=== PATIENT | female | born 1990 | race Caucasian/White ===

== ENCOUNTER → 2016-07-06 | Outpatient (CLI) | payer OTHER ==
[~2016-07-06] VITALS: Ht 160 cm; Wt 90.7 kg
[~2016-07-06] MED LIST: ALBU17IN INH; ALBU83IN INH; AMLO5TAB2 PO; ASMA1AER3 INH; BENA25CA4 PO; BENT10CA PO; BUSP10TA PO; CYCL5TA PO; D 50CAP PO; DULO30CA PO; EXCETAB68 PO; FAMO40TA3 PO; FERR22EL PO; GABA300C3 PO; GEMF600T PO; IBUP600T26 PO; IBUP80TA PO; K-TA10TA2 PO; LIPI10TA PO; LIPI20TA PO; LISI-542 PO; LOPI600T PO; LOSA25TA8 PO; MACR100C3 PO; MEDR1VL IM; MELA1TAB15 PO; METH0.2T4 PO; NEUR300C PO; NS 1,000 ML IV SCH; OXYC5CAP28 PO; PROPOFOL 200 MG/20 ML VIAL As Ordered ONE; PROZ20CA11 PO; TRAZ100T4 PO; TYLE325T5 PO; VENL75TA3 PO; VICO5TAB PO; VITA100T PO; VITA500064 PO; ZANA4CAP PO; [UNRECOGNIZED DRUG - CODE] PO
--- NOTE | 2016-07-06 12:12 | ROOR ---
Patient Name: Rissa Acuña Procedure Date: 07/06/2016 11:58 AM Date of : 1990 Age: 26 Room: [facility] Gender: Female Note Status: Finalized Procedure: Colonoscopy Indications: High risk colon cancer surveillance: Personal history of colonic polyps, Last colonoscopy: June 2013 Providers: Domenico RUSSELL MD Referring MD: RON PAULINO MD Requesting Provider: Medicines: Monitored Anesthesia Care Complications: No immediate complications. Procedure: Pre-Anesthesia Assessment: - The heart rate, respiratory rate, oxygen saturations, blood pressure, adequacy of pulmonary ventilation, and response to care were monitored throughout the procedure. The Colonoscope was introduced through the anus and advanced to the cecum, identified by appendiceal orifice and ileocecal valve. The colonoscopy was performed without difficulty. The patient tolerated the procedure well. The quality of the bowel preparation was fair and good except the ascending colon was unsatisfactory. Findings: The perianal and digital rectal examinations were normal. (EXAM: Complete, PREP: Suboptimal) The entire examined colon appeared normal on direct and retroflexion views. Impression: - Preparation of the colon was inadequate. - (EXAM: Complete, PREP: Suboptimal) - The entire colon is normal on direct and retroflexion views. - No specimens collected. Recommendation: - Repeat colonoscopy in 2 years because the bowel preparation was suboptimal. Domenico Russell MD Domenico RUSSELL MD 07/06/2016 12:12:08 PM This report has been signed electronically. Number of Addenda: 0 Note Initiated On: 07/06/2016 11:58 AM Estimated Blood Loss: Estimated blood loss: none.
[2016-07-06 12:40] VITALS: BP 113/74
== END ==
LOC: M OPP 09:42
PROVIDERS: ATTEND Internal Medicine Gastroenterology
DX: Z12.11 Encounter for screening for malignant neoplasm of colon (principal); Z86.010 Personal history of colon polyps; I10 Essential (primary) hypertension; J45.909 Unspecified asthma, uncomplicated; Z72.0 Tobacco use; Z79.899 Other long term (current) drug therapy; Z88.5 Allergy status to narcotic agent
CPT/HCPCS: 99156; 99157; G0105

== ENCOUNTER 2017-01-06 12:00 | Inpatient (IN) | payer OTHER ==
[~2017-01-06] VITALS: Ht 154.9 cm; Wt 96.8 kg
[2017-01-06] MEDS: NICOTINE 21MG/24HR 1 EA TRANSDERMAL TD SCH (09:00)
[~2017-01-06 12:00] MED LIST changes: +AMLO-183 PO; +GABA-282 PO; -GABA300C3 PO; +IBUP-1022 PO; -IBUP600T26 PO; -MACR100C3 PO; +MACR100C43 PO; -NS 1,000 ML IV SCH; -PROPOFOL 200 MG/20 ML VIAL As Ordered ONE; +TRAZ-136 PO; -TRAZ100T4 PO; -[UNRECOGNIZED DRUG - CODE] PO
[2017-01-06 13:37] LABS: MEAN CORPUSCULAR HEMOGLOBIN 33.8 pg (27.0-33.0); MEAN CORPUSCULAR VOLUME 93.7 fl (80.0-96.0); RED CELL DISTRIBUTION WIDTH 12.4 % (11.5-14.5); WHITE BLOOD COUNT 11.7 K/mm3 (4.0-10.0)
[2017-01-06 13:48] LABS: CONTROL LINE HCG INT CTR LINE PRESENT
[2017-01-06 13:49] LABS: METHADONE URINE NEGATIVE (NEGATIVE)
[2017-01-06 14:05] LABS: ALBUMIN 4.8 GM/DL (3.2-5.2); ALBUMIN/GLOBULIN RATIO 1.55 (1.00-1.93); ALKALINE PHOSPHATASE 60 U/L (45-117); ALT/SGPT 25 U/L (12-78); ANION GAP 11 MEQ/L (8-16); AST/SGOT 7 U/L (15-37); BILIRUBIN,DIRECT < 0.1 MG/DL (0.0-0.2); BILIRUBIN,TOTAL 0.2 MG/DL (0.2-1.0); BLOOD UREA NITROGEN 11 MG/DL (7-18); CALCIUM LEVEL 8.8 MG/DL (8.5-10.1); CARBON DIOXIDE LEVEL 21 MEQ/L (21-32); CHLORIDE LEVEL 110 MEQ/L (98-107); CREATININE FOR GFR 0.74 MG/DL (0.55-1.02); GLOMERULAR FILTRATION RATE > 60.0 (>60); GLUCOSE, FASTING 137 MG/DL (70-105); POTASSIUM SERUM 4.1 MEQ/L (3.5-5.1); SODIUM LEVEL 142 MEQ/L (136-145); TOTAL PROTEIN 7.9 GM/DL (6.4-8.2)
[2017-01-06] MEDS ORDERED: MEDR4PAK PO (15:58)
[2017-01-06] MEDS ORDERED: DULO1CAP3 PO (15:58)
[2017-01-06] MEDS ORDERED: GABA600T PO (15:58)
[2017-01-06] MEDS ORDERED: BUSP15TA47 PO (15:58)
[2017-01-06 18:00] VITALS: BP 121/69
[2017-01-06 18:35] VITALS: BP 121/69
[2017-01-06] MEDS ORDERED: MAALOX 30 ML SUSP *UDC PO PRN (19:15)
[2017-01-06] MEDS ORDERED: traZODone 50 MG TAB PO PRN (19:15)
[2017-01-06] MEDS ORDERED: MOM 30ML SUSPENSION UDC PO PRN (19:15)
[2017-01-06] MEDS ORDERED: ALBUTEROL 90 MCG/ACT 8GM HFA INHALER INH PRN (19:30)
[2017-01-06] MEDS ORDERED: ALBUTEROL SULFATE 2.5 MG/0.5 ML INH NEB SOLN INH PRN (19:30)
[2017-01-06] MEDS: GABAPENTIN 300 MG CAP PO SCH (20:52)
[2017-01-06] MEDS: DULoxetine 30 MG CAP (CYMBALTA) PO SCH (20:52)
[2017-01-06] MEDS: LOSARTAN 25 MG TAB PO SCH (20:53)
[2017-01-06] MEDS: busPIRone 5 MG TAB PO SCH (20:54)
[2017-01-06] MEDS: methylPREDNISolone 4 MG TAB PO SCH (20:54)
[2017-01-06] MEDS: DICYCLOMINE 10 MG CAP PO SCH (20:54)
[2017-01-06] MEDS: FAMOTIDINE 20 MG TAB PO SCH (20:54)
[2017-01-06] MEDS: GEMFIBROZIL 600 MG TAB PO SCH (20:54)
[2017-01-06] MEDS: diphenhydrAMINE 25 MG CAP PO SCH (20:55)
[2017-01-06] MEDS: ACETAMINOPHEN TAB 650MG DOSE (2X325MG) PO PRN (22:32)
[2017-01-07] MEDS: methylPREDNISolone 4 MG TAB PO SCH (06:53)
[2017-01-07 07:03] VITALS: BP 116/58
[2017-01-07] MEDS: NICOTINE 21MG/24HR 1 EA TRANSDERMAL TD SCH (08:55)
[2017-01-07] MEDS: VITAMIN D 1,000 INTERNATIONAL UNITS TABLET PO SCH (08:56)
[2017-01-07] MEDS: GABAPENTIN 300 MG CAP PO SCH ×3 (08:56→21:05)
[2017-01-07] MEDS: DULoxetine 30 MG CAP (CYMBALTA) PO SCH ×2 (08:56→21:05)
[2017-01-07] MEDS: FAMOTIDINE 20 MG TAB PO SCH ×2 (08:56→21:05)
[2017-01-07] MEDS: POTASSIUM CHLORIDE 10 MEQ SR TABLET PO SCH (08:56)
[2017-01-07] MEDS: busPIRone 5 MG TAB PO SCH ×2 (08:56→21:05)
[2017-01-07] MEDS: ATORVASTATIN 20 MG TAB PO SCH (08:56)
[2017-01-07] MEDS: amLODIPine 5 MG TAB PO SCH (08:56)
[2017-01-07] MEDS: GEMFIBROZIL 600 MG TAB PO SCH ×2 (08:57→21:05)
[2017-01-07] MEDS: DICYCLOMINE 10 MG CAP PO SCH ×2 (08:57→21:06)
[2017-01-07] MEDS: ACETAMINOPHEN TAB 650MG DOSE (2X325MG) PO PRN ×3 (09:45→22:35)
[2017-01-07] MEDS: NICOTINE POLACRILEX 2 MG GUM PO PRN ×2 (09:46→17:48)
--- NOTE | 2017-01-07 12:45 | HPEPDOC ---
Medical History and Physical Date of Admission Jan 06, 2017 at 15:08 History and Physical PCP: Dr. Ivy [facility]. [facility], Dr. Trujillo. ATTENDING: Dr. Domenico Soliz HPI: 26 [facility] F [facility] unspecified depressive disorder, being medically examined today. No acute medical complaints today. Denies any fevers, chills, weakness, fatigue, SANTO, CP, SOB, cough, palpitations, abdominal pain, N/V /D or changes in bowel or bladder habits. PMHx: Asthma Hypertension Hyperlipidemia Vitamin D deficiency Insomnia IBS Chronic pain/chronic back pain Unsteady gait. Patient states sometimes uses cane. GERD Vitamin B12 deficiency Chronic headache Hypokalemia Anxiety Depression Depo-Provera as per NETWORK SECURITY ENGINEER [place] Sleep study pending as per PCP PSHX: Lumbar laminectomy/fusion (patient states 4 prior back surgeries) Dorsal column stimulator Pain management injections Cholecystectomy Hernia repair 2 Tonsillectomy Right shoulder SOCHX: Resides in: [facility] Marital Status: Tobacco use: Smoker ETOH: Eyes Illicit Drugs: Denies IV Drug Use: Denies Tattoos done unprofessionally: Denies FAMHX: Children: 2 children Alive, well Unexpected deaths due to medical reasons: None. ROS: As noted in HPI, otherwise 11pt ROS of systems reviewed and remarkable only for LMP unknown. Patient uses Depo-Provera. PE: GEN: 26 yo F, appears stated age. Well-nourished, well developed. No acute distress. Alert and oriented x 3. Pleasant, interactive. HEENT: Normocephalic, atraumatic. Pupils are equal, round, and reactive to light. Extraocular movements are intact. No nystagmus appreciated. Sclera are nonicteric. Conjunctiva without injection. Nose midline. Nasal turbinates without bogginess. EACs both patent BL. TMs both visualized and vargas with good cone of light, no bulging or erythema. No facial asymmetry. Moist mucous membranes. Dentition fair. Pharynx pink and moist, no cobblestoning. Neck supple , trachea midline. No lymphadenopathy or thyromegaly appreciated. CHEST: Regular rate and rhythm, +S1, +S2 LUNGS: Clear to auscultation bilaterally. No wheezes, rales, or rhonchi. Breathing appears symmetric and easy. Patient is speaking in full sentences. No accessory muscle use. ABD: Round, soft, non-tender, non-distended. +Bowel sounds throughout. No rebound or guarding. No costovertebral angle tenderness. EXT: Pulses 2+ bilaterally dorsalis pedis and radial. No lower extremity edema appreciated. SKIN: [place], dry, warm. Capillary refill <2sec. No rashes. NEURO: Alert and oriented x 3. Cranial nerves III-XII are intact. No focal deficits appreciated. Diffuse tenderness with palpation over the lower thoracic spine and lumbar area. EKG: Pending. A&P: 26 yo F [facility] for unspecified depressive disorder 1. Psych. Plan per Psychiatry. Obtain baseline EKG to assure the safety of psychiatric medications as they can prolong the QT interval. 2. Nicotine dependence. Patch available. 3. Chronic pain/chronic back pain. Continue gabapentin 600 mg 3 times a day. Patient requests pain management opinion, consult [facility] pain management for any further recommendations. 4. Follow up with PCP on discharge. 5. Hypertension. Continue losartan 25 mg daily, amlodipine 5 mg daily. Blood pressure noted to be 116/58. 6. Dyslipidemia. Continue gemfibrozil 600 mg by mouth twice a day. Lipitor 20 mg daily. 7. Vitamin D deficiency. Continue vitamin D supplement daily. 8. GERD. Continue Pepcid daily. 9. Hypokalemia. Continue KCl 10 mEq by mouth daily. Potassium is noted within normal limits. 10. Continue Depo-Provera as per NETWORK SECURITY ENGINEER. 11. Asthma. Continue albuterol HFA 2 puffs every 4 hours as needed. 12. Unsteady gait. Patient states she sometimes uses a cane for ambulation. Request physical therapy evaluation. 13. Leukocytosis. Patient is asymptomatic. Afebrile. Recheck CBC in a.m. 14. Merlyn PAS present throughout exam. Vital Signs Vital Signs Date Time Temp Pulse Resp B/P (MAP) Pulse Ox O2 Delivery O2 Flow Rate FiO2 01/07/17 08:56 83 116/58 01/07/17 07:03 98.8 18 01/06/17 18:35 96 Room Air Laboratory Data Labs 24H Laboratory Tests 2 01/06/17 13:15: Anion Gap 11, Glomerular Filtration Rate > 60.0, Calcium Level 8.8, Aspartate Amino Transf (AST/SGOT) 7L, Alanine Aminotransferase (ALT/SGPT) 25, Alkaline Phosphatase 60, Total Bilirubin 0.2, Direct Bilirubin < 0.1, Total Protein 7.9, Albumin 4.8, Albumin/Globulin Ratio 1.55, Thyroid Stimulating Hormone (TSH) 1.440, Human Chorionic Gonadotropin, Qual NEGATIVE, Salicylates Level 3.9L, Urine Amphetamines Screen NEGATIVE, Urine Benzodiazepines Screen NEGATIVE, Urine Opiates Screen NEGATIVE, Urine Methadone Screen NEGATIVE, Acetaminophen Level < 2.0L, Urine Barbiturates Screen NEGATIVE, Urine Phencyclidine Screen NEGATIVE, Urine Cocaine Metabolite Screen NEGATIVE, Urine Cannabinoids Screen NEGATIVE, Ethyl Alcohol Level < 0.003 CBC/BMP Laboratory Tests 01/06/17 13:15 Red Blood Count 4.39, Mean Corpuscular Volume 93.7, Mean Corpuscular Hemoglobin 33.8 H, Mean Corpuscular Hemoglobin Concent 36.0, Red Cell Distribution Width 12.4 Home Medications Scheduled (Excedrin Back & Body 250-250 mg) 1 Tab Tab, 1 TAB PO TID Amlodipine Besylate (Amlodipine Besylate) 5 Mg Tab, 5 MG PO DAILY Atorvastatin Calcium (Lipitor) 20 Mg Tab, 20 MG PO DAILY Buspirone HCl (Buspirone HCl) 15 Mg Tab, 30 MG PO BID Cholecalciferol (Vitamin D3) 5,000 Unit Cap, 5,000 UNIT PO DAILY Cyanocobalamin (Vitamin B-12) 5,000 Mcg Tab, 5,000 MCG PO DAILY Dicyclomine Hcl (Bentyl) 10 Mg Cap, 10 MG PO BID Diphenhydramine HCl (Benadryl Allergy) 25 Mg Cap, 75 MG PO QHS Duloxetine Hcl (Duloxetine HCl) 60 Mg Cap, 60 MG PO BID Famotidine (Famotidine) 40 Mg Tab, 40 MG PO BID Gabapentin (Gabapentin) 600 Mg Tab, 600 MG PO TID Gemfibrozil (Gemfibrozil) 600 Mg Tab, 600 MG PO BID Losartan Potassium (Losartan Potassium) 25 Mg Tab, 25 MG PO QHS Medroxyprogesterone Acetate (Depo-Provera) 1,000 Mg/2.5 Ml Soln, 1,000 MG IM Q3M IS DUE TO RECEIVE IN Melatonin (Melatonin) 10 Mg Tab, 10 MG PO QHS Methylprednisolone (Medrol Dosepak) 4 Mg Derik, 4 MG PO ASDIRECTED PATIENT STATES SHE HAS ONE MORE DOSE FOR 8/31/17 AND DOSE FOR 01/07/17 THEN IS DONE. Mometasone Furoate (Asmanex Hfa) 200 Mcg/Act Aer, 2 PUFFS INH BID Potassium Chloride (K-Tab) 10 Meq Tab, 10 MEQ PO DAILY Trazodone HCl (Trazodone HCl) 100 Mg Tab, 100 MG PO QHS Scheduled PRN Albuterol Sulfate (Albuterol Sulfate) 2.5 Mg/3 Ml Nebu, 2.5 MG INH Q4HP PRN for DYSPNEA Albuterol Sulfate (Ventolin Hfa) 200 Puff/8 Gm Aers, 1 PUFF INH QID PRN for SHORTNESS OF BREATH Allergies Coded Allergies: Tramadol (Verified Allergy, Unknown, 12/13/13) SLEEP PARALYSIS, URINARY RETENTION Lisinopril (Verified Adverse Reaction, Intermediate, excessive cough, 01/06) Valerie Cordero Jan 07, 2017 12:45
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
[2017-01-07 18:00] VITALS: BP 149/90
[2017-01-07] MEDS: traZODone 100 MG TAB PO PRN (21:05)
[2017-01-07] MEDS: diphenhydrAMINE 25 MG CAP PO SCH (21:06)
[2017-01-07] MEDS: LOSARTAN 25 MG TAB PO SCH (21:06)
[2017-01-08 07:11] VITALS: BP 127/75
[2017-01-08 08:09] LABS: MEAN CORPUSCULAR HEMOGLOBIN 33.3 pg (27.0-33.0); MEAN CORPUSCULAR HGB CONC 35.8 g/dl (32.0-36.5); MEAN CORPUSCULAR VOLUME 92.9 fl (80.0-96.0); RED CELL DISTRIBUTION WIDTH 12.2 % (11.5-14.5); WHITE BLOOD COUNT 12.3 K/mm3 (4.0-10.0)
[2017-01-08] MEDS: GABAPENTIN 300 MG CAP PO SCH ×3 (08:12→21:13)
[2017-01-08] MEDS: ATORVASTATIN 20 MG TAB PO SCH (08:13)
[2017-01-08] MEDS: POTASSIUM CHLORIDE 10 MEQ SR TABLET PO SCH (08:13)
[2017-01-08] MEDS: busPIRone 5 MG TAB PO SCH ×2 (08:13→21:13)
[2017-01-08] MEDS: amLODIPine 5 MG TAB PO SCH (08:13)
[2017-01-08] MEDS: GEMFIBROZIL 600 MG TAB PO SCH ×2 (08:13→21:13)
[2017-01-08] MEDS: DICYCLOMINE 10 MG CAP PO SCH ×2 (08:13→21:13)
[2017-01-08] MEDS: DULoxetine 30 MG CAP (CYMBALTA) PO SCH ×2 (08:13→21:13)
[2017-01-08] MEDS: VITAMIN D 1,000 INTERNATIONAL UNITS TABLET PO SCH (08:13)
[2017-01-08] MEDS: FAMOTIDINE 20 MG TAB PO SCH ×2 (08:27→21:13)
--- NOTE | 2017-01-08 09:48 | ECGEPIP ---
Stationary ECG Study [place] Test Date: 2017-01-07 Pat Name: YARITZA FARAH Department: Room: [place] [address] Gender: F Inspector Filters: : 1990 Requested By: Valerie Cordero Order Number: [id number] Reading MD: Abdoulaye Peterson Measurements Intervals [place] Rate: 81 P: 56 TN: 168 QRS: 8 QRSD: 82 T: 46 QT: 364 QTc: 425 Interpretive Statements SINUS RHYTHM Normal Electronically Signed On 01-08-2017 9:48:19 EDT by Abdoulaye Peterson
[2017-01-08] MEDS: ACETAMINOPHEN TAB 650MG DOSE (2X325MG) PO PRN ×2 (12:20→21:14)
--- NOTE | 2017-01-08 17:29 | MHIPNPDOC ---
[facility] Progress Note Progress Note DATE OF SERVICE: 01/08/17 HISTORY: Patient was seen and evaluated. She reported that she has been feeling little better with mood and denies current suicidal or homicidal ideations, but she reported that she has been feeling nervous at times because of the financial problems they're having with the examples given his. They just being present for last month and don't have enough money to pay for this month. She remains optimistic about the future, but at the same time listed all the stressors that she has been having Financial problems. Notable to play with periods work or clean the house. Discussed about CBT skills pertaining to the problems and come up with solutions and will continue to be emphasized that compliant with the medications and denies any side effects. Reported sleeping little better yesterday. Denies appetite problems VITAL SIGNS: See below. CURRENT MEDICATIONS: See below. MENTAL STATUS EXAMINATION: 26yo female sitting in the chair, looks older than the stated age, fair hygiene and grooming, normal psychomotor activities, no abnormal movements, cooperative with fair eye contact, speech is normal in rate, rhythm, amount and prosody, mood is 'sad & nervous', affect constricted and mood congruent, thought process is logical and goal directed, denies suicidal and homicidal ideations, denies hallucinations, no delusions elicited, aaox3, fair immediate, short term and fci memory, limited insight, fair judgement and impulse control DIAGNOSES: 1. Major depression, recurrent psychosis. 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 ASSESSMENT: Biologically, having psychiatry illnesses in the family shows that patient has genetic loading which can be predisposing and perpetuating factor, chronic pain and medical illnesses, also can be predisposing and perpetuating factors Psychologically, having poor coping skills and defense mechanisms Socially, patient is and domiciled working full-time and having children can be protective for her while limited social support can be perpetuating factor MANAGEMENT PLAN: . TIME SPENT: minutes. Vital Signs Vital Signs Date Time Temp Pulse Resp B/P (MAP) Pulse Ox O2 Delivery O2 Flow Rate FiO2 01/08/17 08:13 85 127/75 01/08/17 07:11 98.9 16 Room Air 01/06/17 18:35 96 Laboratory Data CBC/BMP Laboratory Tests 01/08/17 07:30 Red Blood Count 4.38, Mean Corpuscular Volume 92.9, Mean Corpuscular Hemoglobin 33.3 H, Mean Corpuscular Hemoglobin Concent 35.8, Red Cell Distribution Width 12.2 Current Medications Current Medications Acetaminophen (Tylenol Tab) 650 mg Q6HP PRN PO HEADACHE or DISCOMFORT Last administered on 01/08/17 12:20; Start 01/06/17 at 19:15; Stop 02/05/17 at 19:14 Al Hydrox/Mg Hydrox/Simethicone (Mylanta) 30 ml Q4HP PRN PO HEARTBURN/ INDIGESTION; Start 01/06/17 at 19:15; Stop 02/05/17 at 19:14 Albuterol Sulfate (Proventil Neb) 2.5 mg Q4HP PRN INH DYSPNEA; Start 01/06/17 at 19:30; Stop 02/05/17 at 19:29 Albuterol Sulfate (Proventil, Ventolin Hfa) 1 puff QID PRN INH SHORTNESS OF BREATH; Start 01/06/17 at 19:30; Stop 02/05/17 at 19:29 Amlodipine Besylate (Norvasc) 5 mg DAILY PO Last administered on 01/08/17 08:13 ; Start 01/07/17 at 09:00; Stop 02/06/17 at 08:59 Aripiprazole (AbiLIFY) 5 mg QHS PO Last administered on 01/07/17 21:05; Start 01/07/17 at 21:00; Stop 02/06/17 at 20:59 Atorvastatin Calcium (Lipitor) 20 mg DAILY PO Last administered on 01/08/17 08: 13; Start 01/07/17 at 09:00; Stop 02/06/17 at 08:59 Buspirone HCl (Buspar) 30 mg BID PO Last administered on 01/08/17 08:13; Start 01/06/17 at 21:00; Stop 02/05/17 at 20:59 Dicyclomine HCl (Bentyl) 10 mg BID PO Last administered on 01/08/17 08:13; Start 01/06/17 at 21:00; Stop 02/05/17 at 20:59 Diphenhydramine HCl (Benadryl) 75 mg QHS PO Last administered on 01/07/17 21:06 ; Start 01/06/17 at 21:00; Stop 02/05/17 at 20:59 Duloxetine HCl (Cymbalta) 60 mg BID PO Last administered on 01/08/17 08:13; Start 01/06/17 at 21:00; Stop 02/05/17 at 20:59 Famotidine (Pepcid) 40 mg BID PO Last administered on 01/08/17 08:27; Start at 21:00; Stop 02/05/17 at 20:59 Gabapentin (Neurontin) 600 mg TID PO Last administered on 01/08/17 15:42; Start 01/06/17 at 21:00; Stop 02/05/17 at 20:59 Gemfibrozil (Lopid) 600 mg BID PO Last administered on 01/08/17 08:13; Start at 21:00; Stop 02/05/17 at 20:59 Home Med (Med Rec Complete!) ASDIRECTED XX ; Start 01/06/17 at 16:00; Stop at 16:01; Status DC Losartan Potassium (Cozaar) 25 mg QHS PO Last administered on 01/07/17 21:06; Start 01/06/17 at 21:00; Stop 02/05/17 at 20:59 Magnesium Hydroxide (Milk Of Magnesia) 30 ml DAILYPRN PRN PO CONSTIPATION; Start 01/06/17 at 19:15; Stop 02/05/17 at 19:14 Methylprednisolone (Medrol) 4 mg BID@0730,2100 PO Last administered on 06:53; Start 01/06/17 at 21:00; Stop 01/07/17 at 09:00; Status DC Nicotine (Nicoderm Cq 21mg) 1 patch DAILY TD ; Start 01/06/17 at 09:00; Stop 01/07/17 at 09:00; Status DC Nicotine (Nicorette) 2 mg Q4HP PRN PO NICOTINE WITHDRAWAL Last administered on 01/07/17 17:48; Start 01/07/17 at 09:00; Stop 02/06/17 at 08:59 Potassium Chloride (Micro-K Extencaps) 10 meq DAILY PO Last administered on 01/08 08:13; Start 01/07/17 at 09:00; Stop 02/06/17 at 08:59 Trazodone HCl (Desyrel) 50 mg QHSP PRN PO INSOMNIA Last administered on 20:54; Start 01/06/17 at 19:15; Stop 01/07/17 at 15:55; Status DC Trazodone HCl (Desyrel) 100 mg QHSP PRN PO INSOMNIA Last administered on 21:05; Start 01/07/17 at 16:00; Stop 02/06/17 at 15:59 Vitamin D (Vitamin D) 5,000 units DAILY PO Last administered on 01/08/17 08:13 ; Start 01/07/17 at 09:00; Stop 02/06/17 at 08:59 Allergies Coded Allergies: Tramadol (Verified Allergy, Unknown, 12/13/13) SLEEP PARALYSIS, URINARY RETENTION Lisinopril (Verified Adverse Reaction, Intermediate, excessive cough, 01/06) TOMASA GARLAND MD Jan 08, 2017 17:29
[2017-01-08 18:00] VITALS: BP 138/82
[2017-01-08] MEDS: traZODone 100 MG TAB PO PRN (21:12)
[2017-01-08] MEDS: ARIPiprazole 10 MG TAB PO SCH (21:13)
[2017-01-08] MEDS: diphenhydrAMINE 25 MG CAP PO SCH (21:13)
[2017-01-08] MEDS: LOSARTAN 25 MG TAB PO SCH (21:13)
[2017-01-09 06:36] VITALS: BP 120/60
[2017-01-09] MEDS: VITAMIN D 1,000 INTERNATIONAL UNITS TABLET PO SCH (08:15)
[2017-01-09] MEDS: GEMFIBROZIL 600 MG TAB PO SCH ×2 (08:15→21:01)
[2017-01-09] MEDS: DULoxetine 30 MG CAP (CYMBALTA) PO SCH ×2 (08:15→21:02)
[2017-01-09] MEDS: FAMOTIDINE 20 MG TAB PO SCH ×2 (08:15→21:02)
[2017-01-09] MEDS: amLODIPine 5 MG TAB PO SCH (08:15)
[2017-01-09] MEDS: busPIRone 5 MG TAB PO SCH ×2 (08:15→21:02)
[2017-01-09] MEDS: DICYCLOMINE 10 MG CAP PO SCH ×2 (08:15→20:59)
[2017-01-09] MEDS: GABAPENTIN 300 MG CAP PO SCH ×3 (08:15→21:02)
[2017-01-09] MEDS: ATORVASTATIN 20 MG TAB PO SCH (08:15)
[2017-01-09] MEDS: POTASSIUM CHLORIDE 10 MEQ SR TABLET PO SCH (08:15)
[2017-01-09] MEDS: ACETAMINOPHEN TAB 650MG DOSE (2X325MG) PO PRN ×2 (11:32→20:59)
--- NOTE | 2017-01-09 16:45 | MHIPNPDOC ---
[facility] Progress Note Progress Note DATE OF SERVICE: 01/09/17 HISTORY: Patient was seen and evaluated. Her was visiting and was on bedside. She reported that she has been feeling better with mood and denies current suicidal or homicidal ideations, both patient and her are requesting for discharge. Because patient daughter is going to school early next week and would like to see her going to school for the first time. Discussed about safety plan with the and he is willing to work with patient about safety denied any firearms in the house and is willing to take over control of the medications for the patient. Patient reported compliant with medications and also slept better with the increased dose of Abilify. Denies appetite problems. Patient continued to go to groups and milieu treatment in the unit. Discharge planning in progress VITAL SIGNS: See below. CURRENT MEDICATIONS: See below. 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 Major depression, recurrent psychosis. 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 ASSESSMENT: Biologically, having psychiatry illnesses in the family shows that patient has genetic loading which can be predisposing and perpetuating factor, chronic pain and medical illnesses, also can be predisposing and perpetuating factors Psychologically, having poor coping skills and defense mechanisms Socially, patient is and domiciled working full-time and having children can be protective for her while limited social support can be perpetuating factor MANAGEMENT PLAN: Continue current treatment. TIME SPENT:. 15 minutes. Vital Signs Vital Signs Date Time Temp Pulse Resp B/P (MAP) Pulse Ox O2 Delivery O2 Flow Rate FiO2 01/09/17 08:15 90 120/60 01/09/17 06:36 98.2 16 Room Air 01/06/17 18:35 96 Current Medications Current Medications Acetaminophen (Tylenol Tab) 650 mg Q6HP PRN PO HEADACHE or DISCOMFORT Last administered on 01/09/17t 11:32; Start 01/06/17 at 19:15; Stop 02/05/17 at 19:14 Al Hydrox/Mg Hydrox/Simethicone (Mylanta) 30 ml Q4HP PRN PO HEARTBURN/ INDIGESTION; Start 01/06/17 at 19:15; Stop 02/05/17 at 19:14 Albuterol Sulfate (Proventil Neb) 2.5 mg Q4HP PRN INH DYSPNEA; Start 01/06/17 at 19:30; Stop 02/05/17 at 19:29 Albuterol Sulfate (Proventil, Ventolin Hfa) 1 puff QID PRN INH SHORTNESS OF BREATH; Start 01/06/17 at 19:30; Stop 02/05/17 at 19:29 Amlodipine Besylate (Norvasc) 5 mg DAILY PO Last administered on 01/09/17 08:15 ; Start 01/07/17 at 09:00; Stop 02/06/17 at 08:59 Aripiprazole (AbiLIFY) 5 mg QHS PO Last administered on 01/07/17 21:05; Start 01/07/17 at 21:00; Stop 01/08/17 at 17:24; Status DC Aripiprazole (AbiLIFY) 10 mg QHS PO Last administered on 01/08/17 21:13; Start 01/08/17 at 21:00; Stop 02/07/17 at 20:59 Atorvastatin Calcium (Lipitor) 20 mg DAILY PO Last administered on 01/09/17 08: 15; Start 01/07/17 at 09:00; Stop 02/06/17 at 08:59 Buspirone HCl (Buspar) 30 mg BID PO Last administered on 01/09/17 08:15; Start 01/06/17 at 21:00; Stop 02/05/17 at 20:59 Dicyclomine HCl (Bentyl) 10 mg BID PO Last administered on 01/09/17 08:15; Start 01/06/17 at 21:00; Stop 02/05/17 at 20:59 Diphenhydramine HCl (Benadryl) 75 mg QHS PO Last administered on 01/08/17 21:13 ; Start 01/06/17 at 21:00; Stop 02/05/17 at 20:59 Duloxetine HCl (Cymbalta) 60 mg BID PO Last administered on 01/09/17 08:15; Start 01/06/17 at 21:00; Stop 02/05/17 at 20:59 Famotidine (Pepcid) 40 mg BID PO Last administered on 01/09/17 08:15; Start at 21:00; Stop 02/05/17 at 20:59 Gabapentin (Neurontin) 600 mg TID PO Last administered on 01/09/17 15:10; Start 01/06/17 at 21:00; Stop 02/05/17 at 20:59 Gemfibrozil (Lopid) 600 mg BID PO Last administered on 01/09/17 08:15; Start at 21:00; Stop 02/05/17 at 20:59 Home Med (Med Rec Complete!) ASDIRECTED XX ; Start 01/06/17 at 16:00; Stop at 16:01; Status DC Losartan Potassium (Cozaar) 25 mg QHS PO Last administered on 01/08/17 21:13; Start 01/06/17 at 21:00; Stop 02/05/17 at 20:59 Magnesium Hydroxide (Milk Of Magnesia) 30 ml DAILYPRN PRN PO CONSTIPATION; Start 01/06/17 at 19:15; Stop 02/05/17 at 19:14 Methylprednisolone (Medrol) 4 mg BID@0730,2100 PO Last administered on 06:53; Start 01/06/17 at 21:00; Stop 01/07/17 at 09:00; Status DC Nicotine (Nicoderm Cq 21mg) 1 patch DAILY TD ; Start 01/06/17 at 09:00; Stop 01/07/17 at 09:00; Status DC Nicotine (Nicorette) 2 mg Q4HP PRN PO NICOTINE WITHDRAWAL Last administered on 01/07/17 17:48; Start 01/07/17 at 09:00; Stop 02/06/17 at 08:59 Potassium Chloride (Micro-K Extencaps) 10 meq DAILY PO Last administered on 01/09 08:15; Start 01/07/17 at 09:00; Stop 02/06/17 at 08:59 Trazodone HCl (Desyrel) 50 mg QHSP PRN PO INSOMNIA Last administered on 20:54; Start 01/06/17 at 19:15; Stop 01/07/17 at 15:55; Status DC Trazodone HCl (Desyrel) 100 mg QHSP PRN PO INSOMNIA Last administered on 21:12; Start 01/07/17 at 16:00; Stop 02/06/17 at 15:59 Vitamin D (Vitamin D) 5,000 units DAILY PO Last administered on 01/09/17 08:15 ; Start 01/07/17 at 09:00; Stop 02/06/17 at 08:59 Allergies Coded Allergies: Tramadol (Verified Allergy, Unknown, 12/13/13) SLEEP PARALYSIS, URINARY RETENTION Lisinopril (Verified Adverse Reaction, Intermediate, excessive cough, 01/06) TOMASA GARLAND MD Jan 09, 2017 16:45
[2017-01-09 18:00] VITALS: BP 132/86
[2017-01-09] MEDS: ARIPiprazole 10 MG TAB PO SCH (21:01)
[2017-01-09] MEDS: LOSARTAN 25 MG TAB PO SCH (21:01)
[2017-01-09] MEDS: diphenhydrAMINE 25 MG CAP PO SCH (21:02)
[2017-01-09] MEDS: traZODone 100 MG TAB PO PRN (21:02)
[2017-01-10 06:00] VITALS: BP 126/57
[2017-01-10] MEDS: DULoxetine 30 MG CAP (CYMBALTA) PO SCH (08:45)
[2017-01-10] MEDS: GABAPENTIN 300 MG CAP PO SCH (08:45)
[2017-01-10] MEDS: VITAMIN D 1,000 INTERNATIONAL UNITS TABLET PO SCH (08:45)
[2017-01-10] MEDS: ATORVASTATIN 20 MG TAB PO SCH (08:45)
[2017-01-10] MEDS: POTASSIUM CHLORIDE 10 MEQ SR TABLET PO SCH (08:45)
[2017-01-10] MEDS: DICYCLOMINE 10 MG CAP PO SCH (08:45)
[2017-01-10] MEDS: GEMFIBROZIL 600 MG TAB PO SCH (08:45)
[2017-01-10 08:46] VITALS: BP 126/57
[2017-01-10] MEDS: amLODIPine 5 MG TAB PO SCH (08:46)
[2017-01-10] MEDS: busPIRone 5 MG TAB PO SCH (08:48)
[2017-01-10] MEDS: ACETAMINOPHEN TAB 650MG DOSE (2X325MG) PO PRN (09:46)
[2017-01-10] MEDS: FAMOTIDINE 20 MG TAB PO SCH (09:46)
[2017-01-10] MEDS ORDERED: TRAZ10TA PO (09:51)
[2017-01-10] MEDS ORDERED: DULO30CA PO (09:51)
[2017-01-10] MEDS ORDERED: BUSP5TA PO (09:51)
[2017-01-10] MEDS ORDERED: ARIP10TAB PO (09:51)
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
[2017-01-11] MEDS ORDERED: ABIL10TA9 PO (11:12)
[2017-01-11] MEDS ORDERED: ARIP1TAB2 PO (11:25)
== END 2017-01-10 11:00 | disposition home or self-care (01) | DRG 751 ==
LOC: M ED 12:00 → M ED INP 15:08 → M PSY 16:18
PROVIDERS: ADMIT Psychiatry & Neurology Psychiatry; ATTEND Psychiatry & Neurology Psychiatry
DX: F33.9 Major depressive disorder, recurrent, unspecified (principal); F06.30 Mood disorder due to known physiological condition, unspecified; I10 Essential (primary) hypertension; E78.5 Hyperlipidemia, unspecified; F41.9 Anxiety disorder, unspecified; M54.9 Dorsalgia, unspecified; E55.9 Vitamin D deficiency, unspecified; G47.00 Insomnia, unspecified; K58.9 Irritable bowel syndrome, unspecified; R26.81 Unsteadiness on feet; E53.8 Deficiency of other specified B group vitamins; E87.6 Hypokalemia; F17.210 Nicotine dependence, cigarettes, uncomplicated; K21.9 Gastro-esophageal reflux disease without esophagitis; Z79.899 Other long term (current) drug therapy; Z62.810 Personal history of physical and sexual abuse in childhood; Z88.8 Allergy status to other drugs, medicaments and biological substances; Z88.5 Allergy status to narcotic agent

== ENCOUNTER 2018-03-09 20:31 | Observation (INO) | payer OTHER, SELFPAY ==
[2018-03-09 20:52] LABS: BASO % 0.3 % (0.0-1.0); EOS % 0.3 % (0.0-3.0); HEMATOCRIT 43.7 % (36.0-47.0); HEMOGLOBIN 15.4 g/dl (12.0-15.5); IMMATURE GRANULOCYTE % 0.7 % (0-3.0); LYMPH # 2.9 10^3/uL (1.5-6.5); LYMPH % 21.1 % (24.0-44.0); MEAN CORPUSCULAR HEMOGLOBIN 32.8 pg (27.0-33.0); MEAN CORPUSCULAR HGB CONC 35.2 g/dl (32.0-36.5); MEAN CORPUSCULAR VOLUME 93.2 fl (80.0-96.0); MONO # 0.6 10^3/uL (0.0-0.8); MONO % 4.3 % (0.0-5.0); NEUTROPHILS # 10.1 10^3/uL (1.8-7.7); NEUTROPHILS % 73.3 % (36.0-66.0); PLATELET COUNT, AUTOMATED 328 10^3/uL (150-450); RED BLOOD COUNT 4.69 10^6/uL (4.00-5.40); RED CELL DISTRIBUTION WIDTH 12.3 % (11.5-14.5); WHITE BLOOD COUNT 13.7 10^3/uL (4.0-10.0)
[2018-03-09] MEDS ORDERED: GEMFIBROZIL 600 MG TAB PO (21:00)
[2018-03-09] MEDS: ATORVASTATIN 20 MG TAB PO (21:00)
[2018-03-09] MEDS: NS 1,000 ML IV ×2 (21:09→23:04)
[2018-03-09 21:22] LABS: AMPHETAMINES LEVEL URINE NEGATIVE (NEGATIVE); BARBITURATES URINE NEGATIVE (NEGATIVE); BENZODIAZEPINES URINE NEGATIVE (NEGATIVE); CANNABINOIDS URINE NEGATIVE (NEGATIVE); COCAINE METABOLITE URINE NEGATIVE (NEGATIVE); CONTROL LINE HCG INT CTR LINE PRESENT; HCG, SERUM QUALITATIVE NEGATIVE (NEGATIVE); METHADONE URINE NEGATIVE (NEGATIVE); OPIATES URINE NEGATIVE (NEGATIVE); PHENCYCLIDINE URINE NEGATIVE (NEGATIVE)
[2018-03-09 21:34] LABS: ALBUMIN 4.1 GM/DL (3.2-5.2); ALBUMIN/GLOBULIN RATIO 1.17 (1.00-1.93); ALKALINE PHOSPHATASE 86 U/L (45-117); ALT/SGPT 44 U/L (12-78); ANION GAP 12 MEQ/L (8-16); AST/SGOT 18 U/L (7-37); BILIRUBIN,DIRECT < 0.1 MG/DL (0.0-0.2); BILIRUBIN,TOTAL 0.3 MG/DL (0.2-1.0); BLOOD UREA NITROGEN 13 MG/DL (7-18); CALCIUM LEVEL 8.7 MG/DL (8.5-10.1); CARBON DIOXIDE LEVEL 24 MEQ/L (21-32); CHLORIDE LEVEL 108 MEQ/L (98-107); CPK CREATINE PHOSPHOKINASE 107 U/L (26-192); CREATININE FOR GFR 1.16 MG/DL (0.55-1.30); GLOMERULAR FILTRATION RATE 59.2 (>60); GLUCOSE, FASTING 140 MG/DL (70-100); POTASSIUM SERUM 4.7 MEQ/L (3.5-5.1); SALICYLATE LEVEL 2.3 MG/DL (5.0-30.0); SODIUM LEVEL 144 MEQ/L (136-145); TOTAL PROTEIN 7.6 GM/DL (6.4-8.2)
[2018-03-09 21:37] LABS: ACETAMINOPHEN LEVEL < 2.0 UG/ML (10.0-30.0); ETHYL ALCOHOL (ETHANOL) < 0.003 % (0.000-0.010)
[2018-03-09] MEDS ORDERED: IPRATROPIUM 0.5MG/ALBUTEROL 2.5MG INH SOL UD 3ML (DUONEB)(J7620) NEB (22:30)
[2018-03-10] MEDS: LOSARTAN 25 MG TAB PO (00:19)
[2018-03-10] MEDS: NICOTINE 14 MG/24 HR TRANSDERMAL TD ×2 (00:19→09:54)
[2018-03-10] MEDS: HEPARIN SOD (PORCINE) 5000 UNITS/ML VIAL SC (06:31)
[2018-03-10 06:50] LABS: HEMATOCRIT 40.3 % (36.0-47.0); HEMOGLOBIN 13.7 g/dl (12.0-15.5); MEAN CORPUSCULAR HEMOGLOBIN 32.5 pg (27.0-33.0); MEAN CORPUSCULAR VOLUME 95.7 fl (80.0-96.0); PLATELET COUNT, AUTOMATED 265 10^3/uL (150-450); RED BLOOD COUNT 4.21 10^6/uL (4.00-5.40); RED CELL DISTRIBUTION WIDTH 12.3 % (11.5-14.5); WHITE BLOOD COUNT 10.5 10^3/uL (4.0-10.0)
[2018-03-10 07:28] LABS: ANION GAP 7 MEQ/L (8-16); BLOOD UREA NITROGEN 13 MG/DL (7-18); CALCIUM LEVEL 8.4 MG/DL (8.5-10.1); CARBON DIOXIDE LEVEL 23 MEQ/L (21-32); CHLORIDE LEVEL 111 MEQ/L (98-107); CREATININE FOR GFR 0.71 MG/DL (0.55-1.30); FREE THYROXINE INDEX 1.7 % (1.3-4.8); GLOMERULAR FILTRATION RATE > 60.0 (>60); GLUCOSE, FASTING 112 MG/DL (70-100); POTASSIUM SERUM 3.9 MEQ/L (3.5-5.1); SODIUM LEVEL 141 MEQ/L (136-145); T UPTAKE 30 % (30-39); THYROXINE (T4) 5.6 UG/DL (4.5-12.0)
[2018-03-10] MEDS ORDERED: MONTELUKAST 10 MG TAB PO (09:00)
[2018-03-10] MEDS ORDERED: NICOTINE 21MG/24HR 1 EA TRANSDERMAL TD (09:00)
[2018-03-10] MEDS: FLUTICASONE PROP 0.05% NASAL SPRAY 16 GM (FLONASE) (09:53)
[2018-03-10] MEDS: VITAMIN D 1,000 INTERNATIONAL UNITS TABLET PO (09:54)
[2018-03-10] MEDS: amLODIPine 5 MG TAB PO (09:55)
[2018-03-10] MEDS: NS 1,000 ML IV (09:55)
[2018-03-10] MEDS ORDERED: MOM 30ML SUSPENSION UDC PO (15:00)
[2018-03-10] MEDS ORDERED: traZODone 50 MG TAB PO (15:00)
[2018-03-10] MEDS ORDERED: MAALOX 30 ML SUSP *UDC PO (15:00)
[2018-03-10] MEDS ORDERED: ACETAMINOPHEN TAB 650MG DOSE (2X325MG) PO (15:00)
== END 2018-03-10 16:04 ==
LOC: M ED 20:31 → M ED INP 22:21
DX: T14.91XA Suicide attempt, initial encounter (principal); T50.902A Poisoning by unspecified drugs, medicaments and biological substances, intentional self-harm, initial encounter; D72.829 Elevated white blood cell count, unspecified; R94.6 Abnormal results of thyroid function studies; J45.909 Unspecified asthma, uncomplicated; I10 Essential (primary) hypertension; E78.5 Hyperlipidemia, unspecified; E55.9 Vitamin D deficiency, unspecified; G47.00 Insomnia, unspecified; F41.9 Anxiety disorder, unspecified; F32.9 Major depressive disorder, single episode, unspecified; Z79.899 Other long term (current) drug therapy; K58.8 Other irritable bowel syndrome; F17.210 Nicotine dependence, cigarettes, uncomplicated; Y92.9 Unspecified place or not applicable
CPT/HCPCS: 93005

== ENCOUNTER 2018-03-10 16:05 | Inpatient (IN) | payer OTHER ==
[2018-03-10] MEDS ORDERED: MAALOX 30 ML SUSP *UDC PO (16:30)
[2018-03-10] MEDS ORDERED: MOM 30ML SUSPENSION UDC PO (16:30)
[2018-03-10] MEDS: traZODone 50 MG TAB PO (21:27)
[2018-03-11] MEDS: NICOTINE 21MG/24HR 1 EA TRANSDERMAL TD (08:31)
[2018-03-11] MEDS: INFLUENZA QUADRIVALENT PF VACCINE 0.5ML SYRINGE (90686) IM (08:32)
[2018-03-11] MEDS: ACETAMINOPHEN TAB 650MG DOSE (2X325MG) PO ×3 (13:35→23:32)
[2018-03-11] MEDS: buPROPion **XL** TABLET 150MG (WELLBUTRIN XL) PO (15:42)
[2018-03-11] MEDS: DULoxetine 30 MG CAP (CYMBALTA) PO (20:39)
[2018-03-11] MEDS: traZODone 50 MG TAB PO (20:40)
[2018-03-11] MEDS: busPIRone 10 MG TAB PO (20:40)
[2018-03-11] MEDS: LOSARTAN 25 MG TAB PO (23:30)
[2018-03-11] MEDS: ATORVASTATIN 20 MG TAB PO (23:30)
[2018-03-11] MEDS: PREGABALIN 75 MG CAP(LYRICA) PO (23:30)
[2018-03-11] MEDS: FLUTICASONE PROP 0.05% NASAL SPRAY 16 GM (FLONASE) NARES (23:31)
[2018-03-12 07:46] LABS: FREE THYROXINE INDEX 2.6 % (1.3-4.8); T UPTAKE 28 % (30-39); THYROXINE (T4) 9.2 UG/DL (4.5-12.0)
[2018-03-12] MEDS: FLUTICASONE PROP 0.05% NASAL SPRAY 16 GM (FLONASE) NARES ×2 (08:47→20:55)
[2018-03-12] MEDS: NICOTINE 21MG/24HR 1 EA TRANSDERMAL TD (08:48)
[2018-03-12] MEDS: POTASSIUM CHLORIDE 10 MEQ SR TABLET PO (08:48)
[2018-03-12] MEDS: buPROPion **XL** TABLET 150MG (WELLBUTRIN XL) PO (08:48)
[2018-03-12] MEDS: CYANOCOBALAMIN 500 MCG TAB PO (08:49)
[2018-03-12] MEDS: DULoxetine 30 MG CAP (CYMBALTA) PO ×2 (08:49→20:55)
[2018-03-12] MEDS: busPIRone 10 MG TAB PO ×2 (08:50→20:56)
[2018-03-12] MEDS: MONTELUKAST 10 MG TAB PO (08:50)
[2018-03-12] MEDS: VITAMIN D 1,000 INTERNATIONAL UNITS TABLET PO (08:50)
[2018-03-12] MEDS: amLODIPine 5 MG TAB PO (08:50)
[2018-03-12] MEDS: ARIPiprazole 15 MG TAB (AbiLIFY) PO (08:52)
[2018-03-12] MEDS: PREGABALIN 75 MG CAP(LYRICA) PO ×3 (08:52→20:55)
[2018-03-12] MEDS: LORATADINE 10 MG TAB PO (08:52)
[2018-03-12] MEDS: ACETAMINOPHEN TAB 650MG DOSE (2X325MG) PO ×3 (08:53→21:34)
[2018-03-12] MEDS: LOSARTAN 25 MG TAB PO (20:55)
[2018-03-12] MEDS: ATORVASTATIN 20 MG TAB PO (20:55)
[2018-03-13] MEDS: POTASSIUM CHLORIDE 10 MEQ SR TABLET PO (08:36)
[2018-03-13] MEDS: NICOTINE 21MG/24HR 1 EA TRANSDERMAL TD (08:36)
[2018-03-13] MEDS: FLUTICASONE PROP 0.05% NASAL SPRAY 16 GM (FLONASE) NARES ×2 (08:37→20:21)
[2018-03-13] MEDS: DULoxetine 30 MG CAP (CYMBALTA) PO ×2 (08:37→20:23)
[2018-03-13] MEDS: PREGABALIN 75 MG CAP(LYRICA) PO ×3 (08:37→20:23)
[2018-03-13] MEDS: ARIPiprazole 15 MG TAB (AbiLIFY) PO (08:37)
[2018-03-13] MEDS: VITAMIN D 1,000 INTERNATIONAL UNITS TABLET PO (08:37)
[2018-03-13] MEDS: buPROPion **XL** TABLET 150MG (WELLBUTRIN XL) PO (08:38)
[2018-03-13] MEDS: LORATADINE 10 MG TAB PO (08:38)
[2018-03-13] MEDS: CYANOCOBALAMIN 500 MCG TAB PO (08:38)
[2018-03-13] MEDS: ACETAMINOPHEN TAB 650MG DOSE (2X325MG) PO ×3 (08:38→22:14)
[2018-03-13] MEDS: amLODIPine 5 MG TAB PO (08:38)
[2018-03-13] MEDS: busPIRone 10 MG TAB PO ×2 (08:38→20:23)
[2018-03-13] MEDS: MONTELUKAST 10 MG TAB PO (08:38)
[2018-03-13] MEDS: PILL CRUSHER/CUTTER 1 EACH XX (08:38)
[2018-03-13] MEDS: LOSARTAN 25 MG TAB PO (20:22)
[2018-03-13] MEDS: ATORVASTATIN 20 MG TAB PO (20:23)
[2018-03-13] MEDS: traZODone 50 MG TAB PO (20:23)
[2018-03-14] MEDS: ACETAMINOPHEN TAB 650MG DOSE (2X325MG) PO (06:32)
[2018-03-14] MEDS: CYANOCOBALAMIN 500 MCG TAB PO (08:18)
[2018-03-14] MEDS: VITAMIN D 1,000 INTERNATIONAL UNITS TABLET PO (08:18)
[2018-03-14] MEDS: LORATADINE 10 MG TAB PO (08:19)
[2018-03-14] MEDS: ARIPiprazole 15 MG TAB (AbiLIFY) PO (08:19)
[2018-03-14] MEDS: busPIRone 10 MG TAB PO (08:19)
[2018-03-14] MEDS: MONTELUKAST 10 MG TAB PO (08:19)
[2018-03-14] MEDS: buPROPion **XL** TABLET 150MG (WELLBUTRIN XL) PO (08:20)
[2018-03-14] MEDS: FLUTICASONE PROP 0.05% NASAL SPRAY 16 GM (FLONASE) NARES (08:20)
[2018-03-14] MEDS: POTASSIUM CHLORIDE 10 MEQ SR TABLET PO (08:21)
[2018-03-14] MEDS: DULoxetine 30 MG CAP (CYMBALTA) PO (08:21)
[2018-03-14] MEDS: PREGABALIN 75 MG CAP(LYRICA) PO (08:21)
[2018-03-14] MEDS: amLODIPine 5 MG TAB PO (08:21)
[2018-03-14] MEDS: NICOTINE 21MG/24HR 1 EA TRANSDERMAL TD (08:22)
== END 2018-03-14 14:20 | disposition home or self-care (01) | DRG 881 ==
LOC: M PSY 16:05
DX: F32.9 Major depressive disorder, single episode, unspecified (principal); F41.1 Generalized anxiety disorder; J45.909 Unspecified asthma, uncomplicated; G47.00 Insomnia, unspecified; G89.29 Other chronic pain; K58.9 Irritable bowel syndrome, unspecified; M79.7 Fibromyalgia; R94.6 Abnormal results of thyroid function studies; E78.00 Pure hypercholesterolemia, unspecified; R26.81 Unsteadiness on feet; R51 Headache; K21.9 Gastro-esophageal reflux disease without esophagitis; E55.9 Vitamin D deficiency, unspecified; E78.5 Hyperlipidemia, unspecified; I10 Essential (primary) hypertension; F55.8 Abuse of other non-psychoactive substances; Z91.5 Personal history of self-harm; Z88.8 Allergy status to other drugs, medicaments and biological substances; Z88.5 Allergy status to narcotic agent; Z91.018 Allergy to other foods; Z98.1 Arthrodesis status; Z90.49 Acquired absence of other specified parts of digestive tract; Z79.51 Long term (current) use of inhaled steroids; Z79.899 Other long term (current) drug therapy

== ENCOUNTER → 2018-03-15 | Outpatient (CLI) | payer OTHER | LOC: M OUTALCOH 07:53 | DX: Z13.89 Encounter for screening for other disorder (principal); F19.20 Other psychoactive substance dependence, uncomplicated ==

== ENCOUNTER 2018-03-23 11:00 | Outpatient (RCR) | payer OTHER | END 2018-04-07 | LOC: M OUTALCOH 11:00 | DX: F19.20 Other psychoactive substance dependence, uncomplicated (principal); F17.200 Nicotine dependence, unspecified, uncomplicated ==

== ENCOUNTER → 2018-03-23 | Outpatient (CLI) | payer OTHER ==
[2018-03-26 14:07] LABS: OXYCODONE SCREEN Negative ng/mL (Cutoff:5)
== END ==
LOC: M LAB 12:38
DX: F19.20 Other psychoactive substance dependence, uncomplicated (principal)
CPT/HCPCS: 36415

== ENCOUNTER 2018-05-04 10:00 | Outpatient (RCR) | payer OTHER ==
[~2018-05-04 10:00] MED LIST changes: +ABIL10TA9 PO; -AMLO5TAB2 PO; +AMLO5TAB6 PO; +ARIP10TAB PO; +ARIP15TAB PO; +ARIP1TAB2 PO; +ATOR40TA75 PO; +BACL10TA2 PO; +BUPR150T3 PO; +BUPR300T34 PO; +BUSP15TA47 PO; +BUSP5TA PO; +CYMB60CA3 PO; +DEPO150I IM; +DULO1CAP3 PO; +EXCETAB81 PO; +FLON1SPR; -GABA-282 PO; +GABA-843 PO; +GABA600T4 PO; -GEMF600T PO; +GEMF600T5 PO; +LORA10TA3 PO; +LOSA25TA14 PO; -LOSA25TA8 PO; +LYRI150C PO; +MEDR4PAK PO; +MONT10TA2 PO; +NICO14DI24 TD; -TRAZ-136 PO; +TRAZ-163 PO; +TRAZ10TA PO; +VITA-193 PO; -VITA100T PO; +VITA1TAB22 PO
== END 2018-05-08 ==
LOC: M OUTALCOH 10:00
PROVIDERS: ATTEND Psychiatry & Neurology Psychiatry
DX: F19.20 Other psychoactive substance dependence, uncomplicated (principal); F17.200 Nicotine dependence, unspecified, uncomplicated

== ENCOUNTER → 2018-06-08 | Outpatient (RCR) | payer OTHER | LOC: M OUTALCOH 05-11 11:09 | PROVIDERS: ATTEND Psychiatry & Neurology Psychiatry | DX: F19.20 Other psychoactive substance dependence, uncomplicated (principal); F17.200 Nicotine dependence, unspecified, uncomplicated ==

== ENCOUNTER → 2018-07-06 | Outpatient (RCR) | payer OTHER | LOC: M OUTALCOH 06-15 10:01 | PROVIDERS: ATTEND Psychiatry & Neurology Psychiatry | DX: F19.20 Other psychoactive substance dependence, uncomplicated (principal); F17.200 Nicotine dependence, unspecified, uncomplicated ==

== ENCOUNTER 2018-07-12 16:00 | Outpatient (RCR) | payer OTHER | END 2018-08-06 | LOC: M OUTALCOH 16:00 | PROVIDERS: ATTEND Psychiatry & Neurology Psychiatry | DX: F19.20 Other psychoactive substance dependence, uncomplicated (principal); F17.200 Nicotine dependence, unspecified, uncomplicated ==

== ENCOUNTER → 2019-01-16 | Outpatient (CLI) | payer OTHER ==
[~2019-01-16] MED LIST changes: -ARIP10TAB PO; -ARIP15TAB PO; +ARIP1TAB PO; +ARIP1TAB10 PO; +CYAN100T5 PO; +CYAN500T9 PO; -CYCL5TA PO; +CYCL5TAB5 PO; -DULO1CAP3 PO; +DULO1CAP6 PO; -DULO30CA PO; +DULO30CA9 PO; +VENL-65 PO; -VENL75TA3 PO; -VITA-193 PO; -VITA1TAB22 PO
== END ==
LOC: M OUTALCOH 08:16
PROVIDERS: ATTEND Psychiatry & Neurology Psychiatry
DX: F19.20 Other psychoactive substance dependence, uncomplicated (principal)

== ENCOUNTER → 2019-02-05 | Outpatient (RCR) | payer OTHER | LOC: M OUTALCOH 01-24 10:31 | PROVIDERS: ATTEND Psychiatry & Neurology Psychiatry | DX: F19.20 Other psychoactive substance dependence, uncomplicated (principal); F17.200 Nicotine dependence, unspecified, uncomplicated ==

== ENCOUNTER 2019-02-15 16:52 | Emergency (ER) | payer OTHER ==
[~2019-02-15] VITALS: Ht 160 cm; Wt 113.6 kg
[2019-02-15] MEDS ORDERED: HYDR-3713 PO (18:13)
[2019-02-15 18:42] VITALS: BP 145/83
== END 2019-02-15 19:02 | disposition home or self-care (01) ==
LOC: M ED 16:52
DX: J06.9 Acute upper respiratory infection, unspecified (principal); K08.89 Other specified disorders of teeth and supporting structures; J45.909 Unspecified asthma, uncomplicated; Z79.899 Other long term (current) drug therapy; Z88.5 Allergy status to narcotic agent; Z88.8 Allergy status to other drugs, medicaments and biological substances; Z91.018 Allergy to other foods; F17.210 Nicotine dependence, cigarettes, uncomplicated

== ENCOUNTER 2019-03-05 08:45 | Outpatient (RCR) | payer OTHER ==
[~2019-03-05 08:45] MED LIST changes: +HYDR-3713 PO
[2019-03-07] MEDS ORDERED: PREG100CA PO (14:03)
[2019-03-07] MEDS ORDERED: METF10004 PO (14:03)
[2019-03-07] MEDS ORDERED: SITA50TAB PO (14:03)
[2019-03-07] MEDS ORDERED: TRAZ-189 PO (14:03)
[2019-03-07] MEDS ORDERED: ATOR80TA59 PO (14:03)
[2019-03-07] MEDS ORDERED: BACL10TA2 PO (14:03)
[2019-03-07] MEDS ORDERED: BUSP15TA47 PO (16:59)
[2019-03-07] MEDS ORDERED: DULO1CAP6 PO (16:59)
== END 2019-03-08 ==
LOC: M OUTALCOH 08:45
PROVIDERS: ATTEND Psychiatry & Neurology Psychiatry
DX: F19.20 Other psychoactive substance dependence, uncomplicated (principal); F17.200 Nicotine dependence, unspecified, uncomplicated

== ENCOUNTER 2019-03-07 13:32 | Inpatient (IN) | payer OTHER ==
[~2019-03-07] VITALS: Ht 160 cm; Wt 113.6 kg
[2019-03-07] MEDS ORDERED: TRAZ-189 PO (14:03)
[2019-03-07] MEDS ORDERED: SITA50TAB PO (14:03)
[2019-03-07] MEDS ORDERED: METF10004 PO (14:03)
[2019-03-07] MEDS ORDERED: ATOR80TA59 PO (14:03)
[2019-03-07] MEDS ORDERED: BACL10TA2 PO (14:03)
[2019-03-07] MEDS ORDERED: PREG100CA PO (14:03)
[2019-03-07 14:27] LABS: HEMATOCRIT 41.8 % (36.0-47.0); HEMOGLOBIN 14.3 g/dl (12.0-15.5); MEAN CORPUSCULAR HEMOGLOBIN 33.5 pg (27.0-33.0); MEAN CORPUSCULAR HGB CONC 34.2 g/dl (32.0-36.5); MEAN CORPUSCULAR VOLUME 97.9 fl (80.0-96.0); PLATELET COUNT, AUTOMATED 241 10^3/uL (150-450); RED BLOOD COUNT 4.27 10^6/uL (4.00-5.40); WHITE BLOOD COUNT 11.7 10^3/uL (4.0-10.0)
[2019-03-07 14:46] LABS: AMPHETAMINES LEVEL URINE NEGATIVE (NEGATIVE); BARBITURATES URINE NEGATIVE (NEGATIVE); BENZODIAZEPINES URINE NEGATIVE (NEGATIVE); CANNABINOIDS URINE NEGATIVE (NEGATIVE); COCAINE METABOLITE URINE NEGATIVE (NEGATIVE); METHADONE URINE NEGATIVE (NEGATIVE); OPIATES URINE NEGATIVE (NEGATIVE); PHENCYCLIDINE URINE NEGATIVE (NEGATIVE)
[2019-03-07 14:48] LABS: HCG, SERUM QUALITATIVE NEGATIVE (NEGATIVE)
[2019-03-07 14:56] LABS: ACETAMINOPHEN LEVEL < 2.0 UG/ML (10.0-30.0); ALBUMIN 3.7 GM/DL (3.2-5.2); ALT/SGPT 86 U/L (12-78); BILIRUBIN,DIRECT 0.1 MG/DL (0.0-0.2); BILIRUBIN,TOTAL 0.3 MG/DL (0.2-1.0); BLOOD UREA NITROGEN 4 MG/DL (7-18); CALCIUM LEVEL 8.8 MG/DL (8.5-10.1); CARBON DIOXIDE LEVEL 27 MEQ/L (21-32); CHLORIDE LEVEL 105 MEQ/L (98-107); CREATININE FOR GFR 0.77 MG/DL (0.55-1.30); ETHYL ALCOHOL (ETHANOL) < 0.003 % (0.000-0.010); GLOMERULAR FILTRATION RATE > 60.0 (>60); GLUCOSE, FASTING 240 MG/DL (70-100); POTASSIUM SERUM 3.9 MEQ/L (3.5-5.1); SODIUM LEVEL 139 MEQ/L (136-145); THYROID STIMULATING HORMONE 0.977 uIU/ML (0.358-3.740); TOTAL PROTEIN 6.6 GM/DL (6.4-8.2)
[2019-03-07] MEDS ORDERED: BUSP15TA47 PO (16:59)
[2019-03-07] MEDS ORDERED: DULO1CAP6 PO (16:59)
[2019-03-07] MEDS ORDERED: MAALOX 30 ML SUSP *UDC PO PRN (17:15)
[2019-03-07] MEDS ORDERED: MOM 30ML SUSPENSION UDC PO PRN (17:15)
[2019-03-07] MEDS ORDERED: traZODone 50 MG TAB PO PRN (17:15)
[2019-03-07 17:43] VITALS: BP 145/88
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
[2019-03-07] MEDS: busPIRone 10 MG TAB PO SCH (20:16)
[2019-03-07] MEDS: metFORMIN (GLUCOPHAGE) 1000 MG TABLET PO SCH (20:16)
[2019-03-07] MEDS: DULoxetine 30 MG CAP (CYMBALTA) PO SCH (20:16)
[2019-03-07 20:17] VITALS: BP 137/81
[2019-03-07] MEDS: IBUPROFEN 400 MG TAB PO PRN (20:20)
[2019-03-07] MEDS ORDERED: LOSARTAN 25 MG TAB PO SCH (21:00)
[2019-03-07] MEDS ORDERED: ATORVASTATIN 20 MG TAB PO SCH (21:00)
[2019-03-07] MEDS ORDERED: BACLOFEN 10 MG TAB PO SCH (21:00)
[2019-03-07] MEDS ORDERED: PREGABALIN 100 MG CAP (LYRICA) PO SCH (21:00)
[2019-03-08 06:21] VITALS: BP 127/61
[2019-03-08] MEDS: DULoxetine 30 MG CAP (CYMBALTA) PO SCH (08:41)
[2019-03-08] MEDS: busPIRone 10 MG TAB PO SCH (08:44)
[2019-03-08] MEDS: metFORMIN (GLUCOPHAGE) 1000 MG TABLET PO SCH (08:44)
[2019-03-08] MEDS: IBUPROFEN 400 MG TAB PO PRN (08:46)
[2019-03-08] MEDS ORDERED: SITagliptin 50 MG TAB (JANUVIA) PO SCH (09:00)
[2019-03-08] MEDS ORDERED: amLODIPine 5 MG TAB PO SCH (09:00)
[2019-03-08] MEDS ORDERED: CYANOCOBALAMIN 500 MCG TAB PO SCH (09:00)
[2019-03-08] MEDS ORDERED: MONTELUKAST 10 MG TAB PO SCH (09:00)
[2019-03-08] MEDS ORDERED: amLODIPine 10 MG TAB PO SCH (09:00)
[2019-03-08] MEDS ORDERED: VITAMIN D 1,000 INTERNATIONAL UNITS TABLET PO SCH (09:00)
--- NOTE | 2019-03-08 11:27 | MHDSPDOC ---
[facility] Discharge Summary Discharge Summary DATE OF ADMISSION: Mar 07, 2019 at 17:01 DATE OF DISCHARGE: 03/08/19 Discharge Rissa Acuña MRN: N/[id number] Date of : N/A Date of Service: 03/08/2019 Diagnoses Unspecified depressive disorder. Unclear if substance-induced versus adjustment. Other sedative use disorder. History of Present Illness The patient, a 28-year-old woman, was brought in from the outpatient setting where she had reportedly noted to her outpatient provider that she was misusing her Lyrica and baclofen. I spoke with her outpatient provider who alluded that he thought the patient could have suicidal thoughts, however, there was no notat ion of any specific statements. The patient disputed this. She was admitted out of an abundance of caution and observed. When I had met with her, she reported she had no suicidal ideation, but did overuse her Lyrica and baclofen. She reports she's currently in addiction treatment at our [facility] addiction treatment with Nancy for her overuse of her medications. Although she has some low mood and some insomnia that has been chronic, she reports that she has no major psychiatric symptoms. Review of the chart indicates she likely has major depression with irritability versus adjustment, however, it's complicated by her overuse of her Lyrica and baclofen. Consultants Involved Hospitalist/PCP screening Treatment and Progress On The Unit The patient was admitted and observed for 48 hours. She denied any suicidal or homicidal ideation. She was able to attend to her needs and did not demonstrate any significant impairment by mental health condition that would impair her from taking care of her basic needs. She reported that she does overuse her medications and is currently seeing the addiction clinic in order to address this. She reports that she was unclear as to why she was referred to the ER and reported that despite having some insomnia, she was otherwise ready to go home. She did not meet involuntary criteria on the day of discharge. I spoke to her outpatient provider, Dr. Ghosh, who reported that he felt she was misusing her medications and practicing poor judgment in this, but no specific instance of suicidal statements was ascertained. At the time of her discharge, she requested to leave declining any further voluntary admission and reported that she was going to follow up with her outpatient provider when she had left. There was a request made that we contact her outpatient pain clinic and other providers whom she's is gathering multiple controlled substances from and misusing, however, the patient declined to sign any releases and wished to leave as above did not meet involuntary criteria for further extension of her admission as there were no observable signs or symptoms of imminent threat to her safety. Discharge Assessment 28-year-old woman with misuse of her Lyrica and baclofen presents after her provider becomes concerned due to her misuse in the setting of her history of overdoses in the past. There is no significant notation of suicidal ideation being stated, however, there was a concern made by her outpatient provider prompting her initial admission and observation. She did not meet involuntary criteria after her 48 hours for extension and declined voluntary admission. Mental Status Examination General: Well dressed with good hygiene Speech: Spontaneous and fluid Thought processes: Linear and logical MSK: Smooth and coordinated gait, no signs of tremors or involuntary orofacial movements Thought content: Future orientated Abstract reasoning, and computation: Intact Description of associations: Intact Description of abnormal or psychotic thoughts: Denies any suicidal or homicidal ideation. Denies any auditory or visual hallucinations. Does not appear to be responding to internal stimuli. Does not appear to be endorsing any bizarre or paranoid ideation. Judgment: fair Insight: fair Orientation: Alert and orientated 3 Cognition: Grossly normal Recent and remote memory: Intact Attention span and concentration: Intact Fund of knowledge: Adequate Mood: "okay" Affect: Euthymic with a full range Follow Up The social work team worked during the predischarge meeting in order to evaluate for further issues of lethality address them fully before discharge. They worked on safety planning with the patient's family members in order to ensure that the patient will have a safe and effective discharge. Time Spent The amount of time spent in the coordination of care for this patient was approximately for 30 minutes. Vital Signs/I&Os Vital Signs Date Time Temp Pulse Resp B/P (MAP) Pulse Ox O2 Delivery O2 Flow Rate FiO2 03/08/19 09:48 Room Air 03/08/19 06:21 98.8 79 16 127/61 (83) 03/07/19 17:43 100 Laboratory Data Labs 24H Laboratory Tests 2 03/07/19 14:09: Nucleated Red Blood Cells % (auto) 0.0, Anion Gap 7L, Glomerular Filtration Rate > 60.0, Calcium Level 8.8, Total Bilirubin 0.3, Direct Bilirubin 0.1, Aspartate Amino Transf (AST/SGOT) 36, Alanine Aminotransferase (ALT/SGPT) 86H, Alkaline Phosphatase 71, Total Protein 6.6, Albumin 3.7, Albumin/Globulin Ratio 1.28, Thyroid Stimulating Hormone (TSH) 0.977, Human Chorionic Gonadotropin, Qual N EGATIVE, Salicylates Level 5.0, Urine Opiates Screen NEGATIVE, Urine Methadone Screen NEGATIVE, Acetaminophen Level < 2.0L, Urine Barbiturates Screen NEGATIVE, Urine Phencyclidine Screen NEGATIVE, Urine Amphetamines Screen NEGATIVE, Urine Benzodiazepines Screen NEGATIVE, Urine Cocaine Metabolite Screen NEGATIVE, Urine Cannabinoids Screen NEGATIVE, Ethyl Alcohol Level < 0.003 CBC/BMP Laboratory Tests 03/07/19 14:09 Medications Scheduled Amlodipine Besylate (Amlodipine Besylate) 5 Mg Tab, 5 MG PO DAILY, (Reported) Atorvastatin Calcium (Atorvastatin Calcium) 80 Mg Tablet, 80 MG PO QHS, (Reported) Baclofen (Baclofen) 10 Mg Tablet, 10 MG PO BID, (Reported) Buspirone HCl (Buspirone HCl) 15 Mg Tablet, 30 MG PO BID, (Reported) Cholecalciferol (Vitamin D3) (Vitamin D3) 5,000 Unit Cap, 5,000 UNIT PO DAILY, (Reported) Cyanocobalamin (Vitamin B-12) (Vitamin B-12) 500 Mcg Tab, 500 MCG PO DAILY, (Reported) Duloxetine Hcl (Duloxetine HCl) 60 Mg Capsule.dr, 60 MG PO BID, (Reported) Losartan Potassium (Losartan Potassium) 25 Mg Tab, 25 MG PO QHS, (Reported) Medroxyprogesterone Acetate (Depo-Provera) 150 Mg/Ml Inj, 150 MG IM Q3M, (Reported) LAST DOSE WAS EARLY Melatonin/[place] Extr (Melatonin-[place] Tablet) 10 Mg Tab, 20 MG PO QHS, (Reported) Metformin HCl (Metformin HCl) 1,000 Mg Tablet, 1,000 MG PO BID, (Reported) Montelukast Sodium (Montelukast Sodium) 10 Mg Tab, 10 MG PO DAILY, (Reported) Pregabalin (Lyrica) 100 Mg Capsule, 100 MG PO BID, (Reported) Sitagliptin (Januvia) 50 Mg Tablet, 50 MG PO DAILY, (Reported) Trazodone HCl (Trazodone HCl) 100 Mg Tablet, 100 MG PO QHS, (Reported) Scheduled PRN Albuterol Sulf (Albuterol Sulfate) 2.5 Mg/3 Ml Nebu, 2.5 MG INH Q4H PRN for SHORTNESS OF BREATH, (Reported) Allergies Coded Allergies: Coconut (Verified Allergy, Severe, hives, 03/07/19) lisinopril (Verified Allergy, Unknown, 03/07/19) tramadol (Verified Allergy, Unknown, 03/07/19) DEN RAYMUNDO DO Mar 08, 2019 11:27
== END 2019-03-08 11:10 | disposition home or self-care (01) | DRG 754 ==
LOC: M ED 13:32 → M ED INP 17:01 → M PSY 18:03
PROVIDERS: ADMIT Psychiatry & Neurology Psychiatry; ATTEND Psychiatry & Neurology Addiction Medicine
DX: F32.9 Major depressive disorder, single episode, unspecified (principal); F13.10 Sedative, hypnotic or anxiolytic abuse, uncomplicated; G47.00 Insomnia, unspecified; K58.9 Irritable bowel syndrome, unspecified; Z79.899 Other long term (current) drug therapy; Z88.8 Allergy status to other drugs, medicaments and biological substances; Z88.5 Allergy status to narcotic agent; Z91.018 Allergy to other foods

== ENCOUNTER 2019-03-28 11:04 | Emergency (ER) | payer OTHER ==
[~2019-03-28] VITALS: Ht 160 cm; Wt 104.1 kg
[~2019-03-28 11:04] MED LIST changes: +ATOR80TA59 PO; +METF10004 PO; +PREG100CA PO; +SITA50TAB PO; +TRAZ-189 PO
[2019-03-28] MEDS ORDERED: TRUL10IN SC (11:50)
[2019-03-28] MEDS ORDERED: NS 1,000 ML IV ONE (12:00)
[2019-03-28] MEDS ORDERED: ONDANSETRON 4MG/2ML VIAL (J2405) IV ONE (12:00)
[2019-03-28 12:15] LABS: BASO # 0.1 10^3/uL (0.0-0.2); BASO % 0.4 % (0.0-1.0); EOS % 0.2 % (0.0-3.0); HEMATOCRIT 46.6 % (36.0-47.0); HEMOGLOBIN 16.4 g/dl (12.0-15.5); LYMPH # 2.6 10^3/uL (1.5-5.0); LYMPH % 18.9 % (24.0-44.0); MEAN CORPUSCULAR HEMOGLOBIN 33.1 pg (27.0-33.0); MEAN CORPUSCULAR HGB CONC 35.2 g/dl (32.0-36.5); MONO # 0.9 10^3/uL (0.0-0.8); MONO % 6.5 % (0.0-5.0); NEUTROPHILS # 10.1 10^3/uL (1.5-8.5); NEUTROPHILS % 73.3 % (36.0-66.0); PLATELET COUNT, AUTOMATED 344 10^3/uL (150-450); RED BLOOD COUNT 4.96 10^6/uL (4.00-5.40); WHITE BLOOD COUNT 13.8 10^3/uL (4.0-10.0)
[2019-03-28] MEDS: PANTOPRAZOLE SODIUM 40 MG in D5W 50 ML IV SCH (12:23)
[2019-03-28 12:34] LABS: HCG, SERUM QUALITATIVE NEGATIVE (NEGATIVE)
[2019-03-28 12:36] LABS: ALBUMIN 4.6 GM/DL (3.2-5.2); ALT/SGPT 58 U/L (12-78); BILIRUBIN,DIRECT < 0.1 MG/DL (0.0-0.2); BILIRUBIN,TOTAL 0.4 MG/DL (0.2-1.0); BLOOD UREA NITROGEN 4 MG/DL (7-18); CARBON DIOXIDE LEVEL 24 MEQ/L (21-32); CHLORIDE LEVEL 105 MEQ/L (98-107); CREATININE FOR GFR 0.89 MG/DL (0.55-1.30); GLOMERULAR FILTRATION RATE > 60.0 (>60); GLUCOSE, FASTING 191 MG/DL (70-100); LIPASE 88 U/L (73-393); POTASSIUM SERUM 3.3 MEQ/L (3.5-5.1); SODIUM LEVEL 139 MEQ/L (136-145)
[2019-03-28] MEDS ORDERED: ISOVUE-370 76% 100ML VIAL (Q9967) As Ordered ONE (13:31)
--- NOTE | 2019-03-28 14:24 | REP ---
CT abdomen and pelvis with IV and without oral contrast: History: Upper abdomen pain. Vomiting. History of hernia. Comparison CT study June 06, 2014. May 18, 2013 study is also reviewed. CT contrast dose: 100 mL of intravenous Isovue 370. CT findings: Digital personal financial counselor radiograph demonstrates a normal bowel gas pattern. There are clips in right upper quadrant. The patient is status post lumbosacral spine fusion and laminectomy. The power plant for the dorsal column stimulator is seen projecting over the left mid abdomen. The leads are seen in the thoracic spine. The lung bases are clear on axial CT images. There is mild diffuse fatty infiltration of the liver. No focal liver lesion is seen. There is an accessory splenule anterior and superior to the spleen. No abnormality is noted in the pancreas. No adrenal lesion is seen. There are clips in the gallbladder fossa post cholecystectomy. The kidneys enhance symmetrically and are morphologically intact. No hydronephrosis is seen. Normal caliber aorta. No retroperitoneal mass or adenopathy is observed. Small and large intestinal bowel loops are normal in the upper abdomen. There is a small periumbilical ventral hernia transmitting a tiny amount of abdominal fat. Pelvic CT images demonstrate a normal appendix in the right lower quadrant. No uterine or ovarian abnormality is appreciated. Urinary bladder is somewhat distended at the time of scanning but intact in appearance. No free fluid is seen. Small and large bowel loops in the pelvis are normal in appearance. Impression: Mild diffuse fatty infiltration of the liver. Post cholecystectomy clips. Status post L5-S1 fusion and L5 laminectomy. Dorsal column stimulator in the thoracic canal. Small periumbilical ventral hernia transmits a tiny amount of abdominal fat. No acute abdominal or pelvic abnormality. Electronically Signed by Manoj Robledo MD 03/28/2019 03:26 P
[2019-03-28] MEDS ORDERED: ONDA4TAB6 PO (14:45)
[2019-03-28] MEDS ORDERED: PROT1TAB2 PO (14:45)
[2019-03-28 14:56] VITALS: BP 132/71
[2019-03-28] MEDS ORDERED: PANTOPRAZOLE 40MG INJ (PROTONIX) (C9113) IV ONE (15:00)
== END 2019-03-28 15:07 | disposition home or self-care (01) ==
LOC: M ED 11:04
DX: K52.9 Noninfective gastroenteritis and colitis, unspecified (principal); K43.9 Ventral hernia without obstruction or gangrene; K42.9 Umbilical hernia without obstruction or gangrene; K76.0 Fatty (change of) liver, not elsewhere classified; M54.5 Low back pain; E11.9 Type 2 diabetes mellitus without complications; Z79.899 Other long term (current) drug therapy; Z79.84 Long term (current) use of oral hypoglycemic drugs; Z91.018 Allergy to other foods; Z88.8 Allergy status to other drugs, medicaments and biological substances; Z88.5 Allergy status to narcotic agent
CPT/HCPCS: 74177; 80048; 80076; 81001; 83690; 84703; 85025; 96374; 96375; 96376; 99284; C9113; J2405; Q9967

== ENCOUNTER 2019-04-02 15:29 | Outpatient (RCR) | payer OTHER ==
[~2019-04-02 15:29] MED LIST changes: +ONDA4TAB6 PO; +PROT1TAB2 PO; +TRUL10IN SC
== END 2019-04-07 ==
LOC: M OUTALCOH 15:29
PROVIDERS: ATTEND Psychiatry & Neurology Psychiatry
DX: F19.20 Other psychoactive substance dependence, uncomplicated (principal); F17.200 Nicotine dependence, unspecified, uncomplicated

== ENCOUNTER 2019-04-10 12:06 | Day surgery (SDC) | payer OTHER ==
[~2019-04-10 12:06] MED LIST changes: +NS 1,000 ML IV ONE
[2019-04-10] MEDS ORDERED: PROPOFOL 200 MG/20 ML VIAL As Ordered ONE (13:20)
[2019-04-10] MEDS ORDERED: LIDOCAINE 2% INJ 100 MG/5 ML SDV (FOR ANES.) As Ordered ONE (13:20)
--- NOTE | 2019-04-10 13:26 | ROOR ---
Patient Name: Rissa Acuña Procedure Date: 04/10/2019 1:08 PM Date of : 1990 Age: 28 Room: [facility] Gender: Female Note Status: Finalized Procedure: Upper GI endoscopy Indications: Nausea with vomiting Providers: Domenico RUSSELL MD Referring MD: RON PAULINO MD Requesting Provider: Medicines: Monitored Anesthesia Care Complications: No immediate complications. Procedure: Pre-Anesthesia Assessment: - The heart rate, respiratory rate, oxygen saturations, blood pressure, adequacy of pulmonary ventilation, and response to care were monitored throughout the procedure. The Endoscope was introduced through the mouth, and advanced to the second part of duodenum. The upper GI endoscopy was accomplished without difficulty. The patient tolerated the procedure well. Findings: Mucosal flattening was found in the second portion of the duodenum. Biopsies for histology were taken with a cold forceps for evaluation of celiac disease. The exam of the duodenum was otherwise normal. The entire examined stomach was normal. The examined esophagus was normal. Impression: - Normal esophagus. - Normal stomach. - A few areas of slightly flattened mucosa was found in the duodenum. Biopsied to r/o celiac disease. - The duodenum is otherwise normal. Recommendation: - Eat smaller, more frequent meals throughout the day. - Low fat diet. - Liquid/soft foods are tolerated better than solid foods. - Low fiber/well cooked vegetables are tolerated better than high fiber/fibrous foods/raw vegetables. - Avoid medications that inhibit gastric/intestinal motility such as narcotic medications. Domenico Russell MD Domenico RUSSELL MD 04/10/2019 1:25:47 PM Electronically signed by Domenico RUSSELL MD Number of Addenda: 0 Note Initiated On: 04/10/2019 1:08 PM Estimated Blood Loss: Estimated blood loss: none.
[2019-04-10 13:45] VITALS: BP 145/92
== END 2019-04-10 13:55 | disposition home or self-care (01) ==
LOC: M OPP 12:06
PROVIDERS: ATTEND Internal Medicine Gastroenterology
DX: K31.89 Other diseases of stomach and duodenum (principal); R11.2 Nausea with vomiting, unspecified; R10.13 Epigastric pain; I10 Essential (primary) hypertension; E78.5 Hyperlipidemia, unspecified; E11.9 Type 2 diabetes mellitus without complications; F17.200 Nicotine dependence, unspecified, uncomplicated

== ENCOUNTER 2019-04-11 11:10 | Outpatient (RCR) | payer OTHER ==
[~2019-04-11 11:10] MED LIST changes: -NS 1,000 ML IV ONE
== END 2019-05-08 ==
LOC: M OUTALCOH 11:10
PROVIDERS: ATTEND Psychiatry & Neurology Psychiatry
DX: F19.20 Other psychoactive substance dependence, uncomplicated (principal); F17.200 Nicotine dependence, unspecified, uncomplicated

== ENCOUNTER → 2019-05-25 | Outpatient (CLI) | payer OTHER ==
[~2019-05-25] MED LIST changes: -BUPR300T34 PO; +BUPR300T92 PO; -TRAZ-163 PO; +TRAZ-257 PO; -TRAZ10TA PO; +TRAZ1TAB12 PO
== END ==
LOC: M OUTALCOH 10:27
PROVIDERS: ATTEND Psychiatry & Neurology Addiction Medicine
DX: F19.20 Other psychoactive substance dependence, uncomplicated (principal)

== ENCOUNTER 2019-05-31 11:31 | Day surgery (SDC) | payer OTHER ==
[~2019-05-31] VITALS: Ht 160 cm; Wt 100.0 kg
[~2019-05-31 11:31] MED LIST changes: +LIDOCAINE 2% INJ 100 MG/5 ML SDV (FOR ANES.) As Ordered ONE; +propofoL 200 MG/20 ML VIAL As Ordered ONE
[2019-05-31] MEDS ORDERED: NS 1,000 ML IV ONE (12:15)
[2019-05-31] MEDS ORDERED: fentaNYL 100 MCG/2 ML INJECTION (J3010) As Ordered ONE (13:06)
--- NOTE | 2019-05-31 13:20 | ROOR ---
Patient Name: Rissa Acuña Procedure Date: 05/31/2019 1:02 PM Date of : 1990 Age: 28 Room: [facility] Gender: Female Note Status: Finalized Procedure: Upper GI endoscopy Indications: Epigastric abdominal pain, Nausea with vomiting Providers: Domenico RUSSELL MD Referring MD: RON PAULINO MD Requesting Provider: Medicines: Monitored Anesthesia Care Complications: No immediate complications. Procedure: Pre-Anesthesia Assessment: - The heart rate, respiratory rate, oxygen saturations, blood pressure, adequacy of pulmonary ventilation, and response to care were monitored throughout the procedure. The Endoscope was introduced through the mouth, and advanced to the second part of duodenum. The upper GI endoscopy was accomplished without difficulty. The patient tolerated the procedure well. Findings: A medium amount of food (residue) was found in the gastric body. Removal of food was accomplished. The esophagus was normal. The stomach was normal. The examined duodenum was normal. Impression: - Gastroparesis: A medium amount of food (residue) in the stomach. Removal was successful. - Normal esophagus. - Normal stomach. - Normal examined duodenum. Recommendation: - Gastroparesis diet: - Eat smaller, more frequent meals throughout the day. - Low fat diet. - Liquid/soft foods are tolerated better than solid foods. - Low fiber/well cooked vegetables are tolerated better than high fiber/fibrous foods/raw vegetables. - Avoid medications that inhibit gastric/intestinal motility such as narcotic medications. Domenico Russell MD Domenico RUSSELL MD 05/31/2019 1:19:48 PM Electronically signed by Domenico RUSSELL MD Number of Addenda: 0 Note Initiated On: 05/31/2019 1:02 PM Estimated Blood Loss: Estimated blood loss: none.
--- NOTE | 2019-05-31 13:37 | ROOR ---
Patient Name: Rissa Acuña Procedure Date: 05/31/2019 1:03 PM Date of : 1990 Age: 28 Room: [facility] Gender: Female Note Status: Finalized Procedure: Colonoscopy Indications: High risk colon cancer surveillance: Personal history of colonic polyps Providers: Domenico RUSSELL MD Referring MD: RON PAULINO MD Requesting Provider: Medicines: Monitored Anesthesia Care Complications: No immediate complications. Procedure: Pre-Anesthesia Assessment: - The heart rate, respiratory rate, oxygen saturations, blood pressure, adequacy of pulmonary ventilation, and response to care were monitored throughout the procedure. The Colonoscope was introduced through the anus and advanced to 10 cm into the ileum. The colonoscopy was performed without difficulty. The patient tolerated the procedure well. The quality of the bowel preparation was adequate and fair. Findings: The perianal and digital rectal examinations were normal. A 4 mm polyp was found in the recto-sigmoid colon. The polyp was sessile. The polyp was removed with a cold snare. Resection and retrieval were complete. The exam was otherwise without abnormality. Retroflexion in the right colon was performed. Impression: - Preparation of the colon was fair. - One 4 mm polyp at the recto-sigmoid colon, removed with a cold snare. Resected and retrieved. - The examination was otherwise normal. Recommendation: - Repeat colonoscopy in 5 years for surveillance. Domenico Russell MD Domenico RUSSELL MD 05/31/2019 1:36:49 PM Electronically signed by Domenico RUSSELL MD Number of Addenda: 0 Note Initiated On: 05/31/2019 1:03 PM Estimated Blood Loss: Estimated blood loss: none.
[2019-05-31 14:04] VITALS: BP 162/83
== END 2019-05-31 14:07 | disposition home or self-care (01) ==
LOC: M OPP 11:31
PROVIDERS: ATTEND Internal Medicine Gastroenterology
DX: Z12.11 Encounter for screening for malignant neoplasm of colon (principal); Z86.010 Personal history of colon polyps; K63.5 Polyp of colon; T18.2XXA Foreign body in stomach, initial encounter; K31.84 Gastroparesis; R10.13 Epigastric pain; R11.2 Nausea with vomiting, unspecified; F17.210 Nicotine dependence, cigarettes, uncomplicated; R63.4 Abnormal weight loss; Z79.84 Long term (current) use of oral hypoglycemic drugs; Z79.899 Other long term (current) drug therapy; Z88.5 Allergy status to narcotic agent; Z88.8 Allergy status to other drugs, medicaments and biological substances; Z91.018 Allergy to other foods; Y92.89 Other specified places as the place of occurrence of the external cause
CPT/HCPCS: 43247; 45385; 88305; J3010

== ENCOUNTER 2019-06-04 13:10 | Outpatient (RCR) | payer OTHER ==
[~2019-06-04 13:10] MED LIST changes: -LIDOCAINE 2% INJ 100 MG/5 ML SDV (FOR ANES.) As Ordered ONE; -propofoL 200 MG/20 ML VIAL As Ordered ONE
== END 2019-06-08 ==
LOC: M OUTALCOH 13:10
PROVIDERS: ATTEND Psychiatry & Neurology Addiction Medicine
DX: F19.20 Other psychoactive substance dependence, uncomplicated (principal); Z72.0 Tobacco use

== ENCOUNTER 2019-06-28 15:54 | Outpatient (RCR) | payer OTHER ==
[~2019-06-28 15:54] MED LIST changes: -MONT10TA2 PO; +MONT10TA4 PO
== END 2019-07-07 ==
LOC: M OUTALCOH 15:54
PROVIDERS: ATTEND Psychiatry & Neurology Addiction Medicine
DX: F19.20 Other psychoactive substance dependence, uncomplicated (principal); Z72.0 Tobacco use

== ENCOUNTER → 2019-08-07 | Outpatient (RCR) | payer MEDICAID, OTHER | LOC: M OUTALCOH 07-10 09:35 | PROVIDERS: ATTEND Psychiatry & Neurology Addiction Medicine | DX: F19.20 Other psychoactive substance dependence, uncomplicated (principal); Z72.0 Tobacco use ==

== ENCOUNTER 2019-09-05 13:52 | Outpatient (RCR) | payer OTHER | END 2019-09-06 | LOC: M OUTALCOH 13:52 | PROVIDERS: ATTEND Psychiatry & Neurology Addiction Medicine | DX: F19.20 Other psychoactive substance dependence, uncomplicated (principal); Z72.0 Tobacco use ==

== ENCOUNTER 2019-10-02 10:00 | Outpatient (RCR) | payer OTHER | END 2019-10-07 | LOC: M OUTALCOH 10:00 | PROVIDERS: ATTEND Psychiatry & Neurology Addiction Medicine | DX: F19.20 Other psychoactive substance dependence, uncomplicated (principal); Z72.0 Tobacco use ==

== ENCOUNTER 2019-10-24 13:00 | Outpatient (RCR) | payer OTHER | END 2019-11-06 | LOC: M OUTALCOH 13:00 | PROVIDERS: ATTEND Psychiatry & Neurology Addiction Medicine | DX: F19.20 Other psychoactive substance dependence, uncomplicated (principal); Z72.0 Tobacco use ==

== ENCOUNTER 2020-10-20 20:08 | Emergency (ER) | payer OTHER, MEDICAID ==
[~2020-10-20] VITALS: Ht 160 cm; Wt 106.0 kg
[~2020-10-20 20:08] MED LIST changes: +AMLO1TAB24 PO; -AMLO5TAB6 PO; +BUPR150T12 PO; -BUPR150T3 PO; +CYAN100T4 PO; -CYAN100T5 PO; -CYAN500T9 PO; +GABA-282 PO; -GABA-843 PO; -LISI-542 PO; +LISI-898 PO; +MONT10TA10 PO; -MONT10TA4 PO; +VITA500T37 PO
[2020-10-20 21:12] LABS: BASO # 0.1 10^3/uL (0.0-0.2); BASO % 0.5 % (0.0-1.0); EOS # 0.1 10^3/uL (0.0-0.5); HEMATOCRIT 47.1 % (36.0-47.0); HEMOGLOBIN 16.1 g/dl (12.0-15.5); LYMPH % 22.4 % (24.0-44.0); MEAN CORPUSCULAR HEMOGLOBIN 33.1 pg (27.0-33.0); MEAN CORPUSCULAR HGB CONC 34.2 g/dl (32.0-36.5); MEAN CORPUSCULAR VOLUME 96.9 fl (80.0-96.0); MONO # 0.7 10^3/uL (0.0-0.8); MONO % 5.1 % (2.0-8.0); NEUTROPHILS # 9.5 10^3/uL (1.5-8.5); NEUTROPHILS % 70.5 % (36.0-66.0); PLATELET COUNT, AUTOMATED 284 10^3/uL (150-450); RED BLOOD COUNT 4.86 10^6/uL (4.00-5.40); WHITE BLOOD COUNT 13.5 10^3/uL (4.0-10.0)
[2020-10-20 21:37] LABS: ALBUMIN 4.4 GM/DL (3.2-5.2); ALT/SGPT 48 U/L (12-78); BILIRUBIN,DIRECT 0.1 MG/DL (0.0-0.2); BILIRUBIN,TOTAL 0.3 MG/DL (0.2-1.0); BLOOD UREA NITROGEN 6 MG/DL (7-18); CALCIUM LEVEL 9.5 MG/DL (8.5-10.1); CARBON DIOXIDE LEVEL 28 MEQ/L (21-32); CHLORIDE LEVEL 108 MEQ/L (98-107); CREATININE FOR GFR 0.73 MG/DL (0.55-1.30); GLOMERULAR FILTRATION RATE > 60.0 (>60); GLUCOSE, FASTING 105 MG/DL (70-100); LIPASE 358 U/L (73-393); POTASSIUM SERUM 3.2 MEQ/L (3.5-5.1); SODIUM LEVEL 142 MEQ/L (136-145); TOTAL PROTEIN 7.6 GM/DL (6.4-8.2)
[2020-10-20] MEDS ORDERED: REGL5TAB2 PO (23:17)
[2020-10-20 23:33] VITALS: BP 129/63
== END 2020-10-20 23:35 | disposition home or self-care (01) ==
LOC: M ED 20:08
DX: K31.84 Gastroparesis (principal); E11.9 Type 2 diabetes mellitus without complications; I10 Essential (primary) hypertension; E78.5 Hyperlipidemia, unspecified; E66.9 Obesity, unspecified; Z88.8 Allergy status to other drugs, medicaments and biological substances; Z79.899 Other long term (current) drug therapy

== ENCOUNTER → 2021-10-25 | Outpatient (CLI) | payer MEDICAID, OTHER ==
[~2021-10-25] MED LIST changes: +ALBU2.5V10 INH; -ALBU83IN INH; -ARIP1TAB2 PO; +ARIP1TAB43 PO; +CARV6.25 PO; -CYMB60CA3 PO; +CYMB60CA4 PO; -LISI-898 PO; +LISI5TAB11 PO; +LOSA25TA13 PO; -LOSA25TA14 PO; -MONT10TA10 PO; +MONT10TA97 PO; +POTA10CA32 PO; +REGL5TAB2 PO; +SERT50TA29 PO; +STEG15TA PO
== END ==
LOC: M LABSMTC 11:56
PROVIDERS: ATTEND Anesthesiology
DX: Z01.818 Encounter for other preprocedural examination (principal); Z11.52 Encounter for screening for COVID-19

== ENCOUNTER 2021-10-29 08:13 | Day surgery (SDC) | payer OTHER ==
[~2021-10-29] VITALS: Ht 160 cm; Wt 88.4 kg
[~2021-10-29 08:13] MED LIST changes: +NS 1,000 ML IV ONE
[2021-10-29] MEDS ORDERED: fentaNYL 100 MCG/2 ML INJECTION As Ordered ONE (10:06)
[2021-10-29] MEDS ORDERED: LIDOCAINE 2% 100MG/5ML SDV (FOR ANES.) As Ordered ONE (10:06)
[2021-10-29] MEDS ORDERED: propofoL 500 MG/50 ML VIAL As Ordered ONE (10:06)
[2021-10-29 10:45] VITALS: BP 171/98
== END 2021-10-29 11:03 | disposition home or self-care (01) ==
LOC: M OPP 08:13
PROVIDERS: ATTEND Internal Medicine Gastroenterology
DX: Z12.11 Encounter for screening for malignant neoplasm of colon (principal); Z86.010 Personal history of colon polyps; Z87.19 Personal history of other diseases of the digestive system; Z80.0 Family history of malignant neoplasm of digestive organs; K31.84 Gastroparesis; R10.13 Epigastric pain; E11.9 Type 2 diabetes mellitus without complications; R10.33 Periumbilical pain; K76.0 Fatty (change of) liver, not elsewhere classified; Z79.02 Long term (current) use of antithrombotics/antiplatelets; Z79.899 Other long term (current) drug therapy; Z79.51 Long term (current) use of inhaled steroids; Z79.891 Long term (current) use of opiate analgesic; Z88.8 Allergy status to other drugs, medicaments and biological substances; Z88.5 Allergy status to narcotic agent; F17.210 Nicotine dependence, cigarettes, uncomplicated
CPT/HCPCS: 43247; 45378; J3010

== ENCOUNTER → 2021-11-10 | Outpatient (CLI) | payer OTHER ==
[~2021-11-10] MED LIST changes: -NS 1,000 ML IV ONE
[2021-11-10 18:48] LABS: BLOOD UREA NITROGEN 10 MG/DL (7-18); CREATININE FOR GFR 0.76 MG/DL (0.55-1.30); GLOMERULAR FILTRATION RATE > 60.0 (>60)
== END ==
LOC: M LAB 15:50
PROVIDERS: ATTEND Physician Assistant Medical
DX: R10.10 Upper abdominal pain, unspecified (principal); R63.4 Abnormal weight loss

== ENCOUNTER → 2021-11-13 | Outpatient (CLI) | payer OTHER ==
[~2021-11-13] MED LIST changes: +GLUCAGON INJ 1MG VIAL As Ordered ONE; +ISOVUE-370 76% 100ML VIAL As Ordered ONE; +NEULUMEX 0.1% SUSPENSION 450ML BOTTLE (FORMERLY VOLUMEN) As Ordered ONE
== END ==
LOC: M RAD 14:57
PROVIDERS: ATTEND Physician Assistant Medical
DX: R10.10 Upper abdominal pain, unspecified (principal); R11.2 Nausea with vomiting, unspecified; R63.4 Abnormal weight loss
CPT/HCPCS: 74177; J1610; Q9967

== ENCOUNTER → 2021-12-16 | Outpatient (REF) ==
[~2021-12-16] MED LIST changes: -GLUCAGON INJ 1MG VIAL As Ordered ONE; -ISOVUE-370 76% 100ML VIAL As Ordered ONE; -NEULUMEX 0.1% SUSPENSION 450ML BOTTLE (FORMERLY VOLUMEN) As Ordered ONE
== END ==
LOC: M PLAIMG 15:42
PROVIDERS: ATTEND Internal Medicine
DX: Z11.52 Encounter for screening for COVID-19 (principal)

== ENCOUNTER → 2021-12-18 | Outpatient (CLI) | payer OTHER ==
[2021-12-18 17:11] LABS: BASO # 0.1 10^3/uL (0.0-0.2); BASO % 0.6 % (0.0-1.0); EOS # 0.2 10^3/uL (0.0-0.5); EOS % 1.3 % (0.0-3.0); HEMOGLOBIN 15.9 g/dl (12.0-15.5); LYMPH # 3.7 10^3/uL (1.5-5.0); LYMPH % 25.5 % (24.0-44.0); MEAN CORPUSCULAR HEMOGLOBIN 33.5 pg (27.0-33.0); MEAN CORPUSCULAR HGB CONC 33.8 g/dl (32.0-36.5); MEAN CORPUSCULAR VOLUME 98.9 fl (80.0-96.0); MONO # 0.9 10^3/uL (0.0-0.8); MONO % 6.2 % (2.0-8.0); NEUTROPHILS # 9.5 10^3/uL (1.5-8.5); NEUTROPHILS % 65.8 % (36.0-66.0); PLATELET COUNT, AUTOMATED 395 10^3/uL (150-450); RED BLOOD COUNT 4.75 10^6/uL (4.00-5.40); WHITE BLOOD COUNT 14.5 10^3/uL (4.0-10.0)
[2021-12-18 18:04] LABS: C REACTIVE PROTEIN QUANTITATIV < 0.30 MG/DL (0.00-0.30); RHEUMATOID FACTOR QUANT < 10.0 IU/ML (<15.0)
[2021-12-18 18:06] LABS: ERYTHROCYTE SEDIMENTATION RATE 12 mm/hr (0-20)
[2021-12-21 16:08] LABS: ANTINUCLEAR ANTIBODIES DIRECT Negative (Negative)
== END ==
LOC: M LAB 16:12
PROVIDERS: ATTEND Orthopaedic Surgery
DX: M70.62 Trochanteric bursitis, left hip (principal)

== ENCOUNTER → 2021-12-18 | Outpatient (CLI) | payer OTHER | LOC: M RAD 16:08 | PROVIDERS: ATTEND Physician Assistant Medical | DX: R19.7 Diarrhea, unspecified (principal) ==

== ENCOUNTER → 2021-12-31 | Outpatient (CLI) | payer OTHER | LOC: M RAD 15:13 | PROVIDERS: ATTEND Orthopaedic Surgery | DX: M70.62 Trochanteric bursitis, left hip (principal) ==

== ENCOUNTER 2022-01-09 16:51 | Emergency (ER) | payer OTHER ==
[~2022-01-09] VITALS: Ht 160 cm; Wt 86.4 kg
[2022-01-09] MEDS ORDERED: CEFD300C41 (17:00)
[2022-01-09] MEDS ORDERED: ATEN50TA9 (17:00)
[2022-01-09] MEDS ORDERED: KETOROLAC 30 MG/ML 1ML VIAL IM ONE (19:25)
[2022-01-09 20:32] VITALS: BP 132/90
== END 2022-01-09 20:58 | disposition home or self-care (01) ==
LOC: M ED 16:51
DX: S63.521A Sprain of radiocarpal joint of right wrist, initial encounter (principal); S50.11XA Contusion of right forearm, initial encounter; S60.221A Contusion of right hand, initial encounter; W18.2XXA Fall in (into) shower or empty bathtub, initial encounter; Y92.018 Other place in single-family (private) house as the place of occurrence of the external cause; I10 Essential (primary) hypertension; J45.909 Unspecified asthma, uncomplicated; E78.5 Hyperlipidemia, unspecified; E05.90 Thyrotoxicosis, unspecified without thyrotoxic crisis or storm; K58.9 Irritable bowel syndrome, unspecified; K21.9 Gastro-esophageal reflux disease without esophagitis; Z87.19 Personal history of other diseases of the digestive system; Z79.899 Other long term (current) drug therapy

== ENCOUNTER → 2022-01-13 | Outpatient (CLI) | payer OTHER ==
[~2022-01-13] MED LIST changes: +ATEN50TA9; +CEFD300C41
== END ==
LOC: M RAD 10:40
PROVIDERS: ATTEND Physician Assistant
DX: S50.11XA Contusion of right forearm, initial encounter (principal); M79.601 Pain in right arm; W18.30XA Fall on same level, unspecified, initial encounter; Y92.009 Unspecified place in unspecified non-institutional (private) residence as the place of occurrence of the external cause

== ENCOUNTER → 2022-01-29 | Outpatient (CLI) | payer OTHER | LOC: M RAD 09:21 | PROVIDERS: ATTEND Physician Assistant | DX: S50.11XA Contusion of right forearm, initial encounter (principal); W18.30XA Fall on same level, unspecified, initial encounter; Y92.009 Unspecified place in unspecified non-institutional (private) residence as the place of occurrence of the external cause ==

== ENCOUNTER → 2022-02-23 | Outpatient (REF) | payer OTHER | LOC: M LAB REF 15:45 | PROVIDERS: ATTEND Physician Assistant Medical | DX: R19.7 Diarrhea, unspecified (principal) ==

== ENCOUNTER → 2022-03-24 | Outpatient (CLI) | payer OTHER ==
[2022-03-24 17:44] LABS: HEPATITIS B SURFACE ANTIGEN NEGATIVE (NEGATIVE)
[2022-03-24 18:15] LABS: HEPATITIS C VIRUS ABY INDEX 0.1 INDEX (<0.8)
== END ==
LOC: M PLALAB 12:13
PROVIDERS: ATTEND Nurse Practitioner Family
DX: Z11.3 Encounter for screening for infections with a predominantly sexual mode of transmission (principal)

== ENCOUNTER → 2022-03-24 | Outpatient (CLI) | payer OTHER ==
[2022-03-24 16:18] LABS: BASO # 0.1 10^3/uL (0.0-0.2); BASO % 0.7 % (0.0-1.0); EOS # 0.4 10^3/uL (0.0-0.5); HEMATOCRIT 46.8 % (36.0-47.0); LYMPH % 27.8 % (24.0-44.0); MEAN CORPUSCULAR HEMOGLOBIN 35.9 pg (27.0-33.0); MEAN CORPUSCULAR HGB CONC 34.2 g/dl (32.0-36.5); MEAN CORPUSCULAR VOLUME 104.9 fl (80.0-96.0); MONO # 0.9 10^3/uL (0.0-0.8); NEUTROPHILS % 62.1 % (36.0-66.0); PLATELET COUNT, AUTOMATED 392 10^3/uL (150-450); RED BLOOD COUNT 4.46 10^6/uL (4.00-5.40); WHITE BLOOD COUNT 14.4 10^3/uL (4.0-10.0)
[2022-03-24 17:25] LABS: ALBUMIN 4.3 G/DL (3.2-5.2); ALT/SGPT 25 U/L (7.0-40); BILIRUBIN,TOTAL 0.2 MG/DL (0.3-1.2); BLOOD UREA NITROGEN 8 MG/DL (9-23); CALCIUM LEVEL 9.9 MG/DL (8.5-10.1); CARBON DIOXIDE LEVEL 27 MMOL/L (20-31); CHLORIDE LEVEL 100 MMOL/L (98-107); CHOLESTEROL LEVEL 174 MG/DL (<200); CREATININE FOR GFR 0.68 MG/DL (0.55-1.30); CREATININE, URINE 48.4 MG/DL; CREATININE,RANDOM URINE 48.4 MG/DL; GLOMERULAR FILTRATION RATE > 60.0 (>60); GLUCOSE, FASTING 83 MG/DL (60-100); HDL CHOLESTEROL 37.8 MG/DL (>40); MALB URINE SIEMENS < 5.0 MG/DL; MAU/CREAT RATIO 10.3 MCG/MG (0.0-30.0); NON-HDL-C 136 MG/DL; POTASSIUM SERUM 3.2 MMOL/L (3.5-5.1); SODIUM LEVEL 139 MMOL/L (136-145); THYROID STIMULATING HORMONE 1.071 uIU/ML (0.55-4.78); TOTAL PROTEIN 7.2 G/DL (5.7-8.2); TRIGLYCERIDES LEVEL 419 MG/DL (<150)
== END ==
LOC: M PLALAB 12:09
PROVIDERS: ATTEND Nurse Practitioner Family
DX: Z13.228 Encounter for screening for other metabolic disorders (principal); E11.21 Type 2 diabetes mellitus with diabetic nephropathy

== ENCOUNTER → 2022-05-13 | Outpatient (CLI) | payer OTHER ==
[~2022-05-13] MED LIST changes: -ASMA1AER3 INH; +MOME13HF5 INH; -POTA10CA32 PO; +POTA10CA33 PO
[2022-05-13 17:43] LABS: BASO # 0.1 10^3/uL (0.0-0.2); BASO % 0.7 % (0.0-1.0); EOS # 0.3 10^3/uL (0.0-0.5); EOS % 1.8 % (0.0-3.0); HEMATOCRIT 44.6 % (36.0-47.0); HEMOGLOBIN 15.1 g/dl (12.0-15.5); LYMPH # 4.3 10^3/uL (1.5-5.0); LYMPH % 29.7 % (24.0-44.0); MEAN CORPUSCULAR HEMOGLOBIN 34.9 pg (27.0-33.0); MEAN CORPUSCULAR HGB CONC 33.9 g/dl (32.0-36.5); MONO # 0.9 10^3/uL (0.0-0.8); MONO % 6.1 % (2.0-8.0); NEUTROPHILS # 8.8 10^3/uL (1.5-8.5); NEUTROPHILS % 60.8 % (36.0-66.0); PLATELET COUNT, AUTOMATED 337 10^3/uL (150-450); RED BLOOD COUNT 4.33 10^6/uL (4.00-5.40); WHITE BLOOD COUNT 14.5 10^3/uL (4.0-10.0)
[2022-05-13 18:10] LABS: BLOOD UREA NITROGEN 5 MG/DL (9-23); CALCIUM LEVEL 9.2 MG/DL (8.5-10.1); CARBON DIOXIDE LEVEL 27 MMOL/L (20-31); CHLORIDE LEVEL 107 MMOL/L (98-107); CREATININE FOR GFR 0.54 MG/DL (0.55-1.30); GLOMERULAR FILTRATION RATE > 60.0 (>60); GLUCOSE, FASTING 86 MG/DL (60-100); POTASSIUM SERUM 3.7 MMOL/L (3.5-5.1); SODIUM LEVEL 143 MMOL/L (136-145)
== END ==
LOC: M PLALAB 15:14
PROVIDERS: ATTEND Internal Medicine Cardiovascular Disease
DX: R07.9 Chest pain, unspecified (principal)

== ENCOUNTER → 2022-05-17 | Outpatient (CLI) | payer OTHER | LOC: M PAIN 13:00 | PROVIDERS: ATTEND Nurse Practitioner Family | DX: M79.18 Myalgia, other site (principal); M54.2 Cervicalgia; M25.511 Pain in right shoulder; G89.29 Other chronic pain; M70.62 Trochanteric bursitis, left hip; M54.50 Low back pain, unspecified; E11.43 Type 2 diabetes mellitus with diabetic autonomic (poly)neuropathy; K31.84 Gastroparesis; K76.0 Fatty (change of) liver, not elsewhere classified; I11.9 Hypertensive heart disease without heart failure; E78.00 Pure hypercholesterolemia, unspecified; E66.9 Obesity, unspecified; M19.90 Unspecified osteoarthritis, unspecified site; F41.9 Anxiety disorder, unspecified; J45.909 Unspecified asthma, uncomplicated; E78.5 Hyperlipidemia, unspecified; G47.00 Insomnia, unspecified; K64.9 Unspecified hemorrhoids; M81.0 Age-related osteoporosis without current pathological fracture; J98.4 Other disorders of lung; Z68.42 Body mass index [BMI] 45.0-49.9, adult; Z88.5 Allergy status to narcotic agent; Z88.8 Allergy status to other drugs, medicaments and biological substances; Z91.018 Allergy to other foods; Z79.84 Long term (current) use of oral hypoglycemic drugs; Z79.1 Long term (current) use of non-steroidal anti-inflammatories (NSAID); Z79.899 Other long term (current) drug therapy ==

== ENCOUNTER → 2022-05-28 | Outpatient (REF) | payer OTHER ==
[2022-05-28 18:00] LABS: BASO # 0.1 10^3/uL (0.0-0.2); BASO % 0.7 % (0.0-1.0); EOS # 0.9 10^3/uL (0.0-0.5); EOS % 5.2 % (0.0-3.0); HEMATOCRIT 48.3 % (36.0-47.0); HEMOGLOBIN 16.5 g/dl (12.0-15.5); LYMPH # 3.5 10^3/uL (1.5-5.0); LYMPH % 20.6 % (24.0-44.0); MEAN CORPUSCULAR HEMOGLOBIN 34.9 pg (27.0-33.0); MEAN CORPUSCULAR HGB CONC 34.2 g/dl (32.0-36.5); MEAN CORPUSCULAR VOLUME 102.1 fl (80.0-96.0); MONO # 0.8 10^3/uL (0.0-0.8); MONO % 4.6 % (2.0-8.0); NEUTROPHILS # 11.7 10^3/uL (1.5-8.5); NEUTROPHILS % 68.4 % (36.0-66.0); PLATELET COUNT, AUTOMATED 355 10^3/uL (150-450); RED BLOOD COUNT 4.73 10^6/uL (4.00-5.40); WHITE BLOOD COUNT 17.1 10^3/uL (4.0-10.0)
== END ==
LOC: M LAB REF 17:24
PROVIDERS: ATTEND Nurse Practitioner Family
DX: D72.829 Elevated white blood cell count, unspecified (principal); E53.8 Deficiency of other specified B group vitamins

== ENCOUNTER → 2022-06-07 | Outpatient (CLI) | payer OTHER | LOC: M PAIN 13:00 | PROVIDERS: ATTEND Nurse Practitioner Family | DX: M96.1 Postlaminectomy syndrome, not elsewhere classified (principal); G89.29 Other chronic pain; E11.9 Type 2 diabetes mellitus without complications; I10 Essential (primary) hypertension; J45.909 Unspecified asthma, uncomplicated; Z96.89 Presence of other specified functional implants; Z86.59 Personal history of other mental and behavioral disorders; Z87.891 Personal history of nicotine dependence; Z88.5 Allergy status to narcotic agent; Z88.8 Allergy status to other drugs, medicaments and biological substances; E66.01 Morbid (severe) obesity due to excess calories; Z68.42 Body mass index [BMI] 45.0-49.9, adult; Z79.84 Long term (current) use of oral hypoglycemic drugs; Z79.899 Other long term (current) drug therapy ==

== ENCOUNTER → 2022-06-07 | Outpatient (CLI) | payer OTHER ==
[2022-06-07 18:13] LABS: APPEARANCE, URINE MANUAL CLEAR (CLEAR); BILIRUBIN, URINE MANUAL NEGATIVE (NEGATIVE); BLOOD URINE MANUAL NEGATIVE (NEGATIVE); COLOR, URINE MANUAL LT YELLOW (YELLOW); GLUCOSE, URINE (UA) MANUAL 4+(1000 MG/DL) mg/dL (NEGATIVE); KETONE, URINE MANUAL NEGATIVE (NEGATIVE); LEUKOCYTE ESTERASE, URINE MAN NEGATIVE (NEGATIVE); NITRITE, URINE MANUAL NEGATIVE (NEGATIVE); PROTEIN, URINE MANUAL NEGATIVE (NEGATIVE); UROBILINOGEN, URINE MANUAL NORMAL (NORMAL)
[2022-06-07 18:33] LABS: HEMATOCRIT 44.8 % (36.0-47.0); HEMOGLOBIN 15.5 g/dl (12.0-15.5); MEAN CORPUSCULAR HEMOGLOBIN 34.8 pg (27.0-33.0); MEAN CORPUSCULAR HGB CONC 34.6 g/dl (32.0-36.5); MEAN CORPUSCULAR VOLUME 100.7 fl (80.0-96.0); PLATELET COUNT, AUTOMATED 349 10^3/uL (150-450); RED BLOOD COUNT 4.45 10^6/uL (4.00-5.40); WHITE BLOOD COUNT 13.3 10^3/uL (4.0-10.0)
[2022-06-07 18:56] LABS: ALBUMIN 4.2 G/DL (3.2-5.2); ALKALINE PHOSPHATASE 51 U/L (46-116); ALT/SGPT 17 U/L (7.0-40); AST/SGOT 18 U/L (<34); BILIRUBIN,TOTAL 0.4 MG/DL (0.3-1.2); BLOOD UREA NITROGEN 8 MG/DL (9-23); CALCIUM LEVEL 9.7 MG/DL (8.5-10.1); CARBON DIOXIDE LEVEL 27 MMOL/L (20-31); CHLORIDE LEVEL 100 MMOL/L (98-107); CREATININE FOR GFR 0.74 MG/DL (0.55-1.30); GLOMERULAR FILTRATION RATE > 60.0 (>60); GLUCOSE, FASTING 68 MG/DL (60-100); IRON (FE) 93 UG/DL (50-170); MAGNESIUM LEVEL 1.8 MG/DL (1.8-2.4); POTASSIUM SERUM 3.1 MMOL/L (3.5-5.1); SODIUM LEVEL 138 MMOL/L (136-145)
== END ==
LOC: M LAB 14:29
PROVIDERS: ATTEND Internal Medicine Cardiovascular Disease
DX: D64.9 Anemia, unspecified (principal)

== ENCOUNTER → 2022-06-07 | Outpatient (CLI) | payer OTHER ==
[2022-06-07 16:35] LABS: CHOLESTEROL RISK RATIO 2.87 (<5); HDL CHOLESTEROL 26.4 MG/DL (>40); LDL CHOLESTEROL 9.6 MG/DL (<100)
== END ==
LOC: M LAB 14:26
PROVIDERS: ATTEND Nurse Practitioner Family
DX: K31.84 Gastroparesis (principal); E78.5 Hyperlipidemia, unspecified

== ENCOUNTER → 2022-06-07 | Outpatient (CLI) | payer OTHER ==
[~2022-06-07] MED LIST changes: +ACET-683 PO; +AMLO1TAB25 PO; +DICL3GEL2 TOP; +METH-1165 PO; +RANO500T7 PO
== END ==
LOC: M RAD 14:22
PROVIDERS: ATTEND Nurse Practitioner Family
DX: M54.2 Cervicalgia (principal)

== ENCOUNTER → 2022-06-15 | Outpatient (CLI) | payer OTHER | LOC: M PAIN 14:15 | PROVIDERS: ATTEND Nurse Practitioner Family | DX: M79.12 Myalgia of auxiliary muscles, head and neck (principal); E11.43 Type 2 diabetes mellitus with diabetic autonomic (poly)neuropathy; K31.84 Gastroparesis; M54.50 Low back pain, unspecified; M79.18 Myalgia, other site; I10 Essential (primary) hypertension; E78.5 Hyperlipidemia, unspecified; M81.0 Age-related osteoporosis without current pathological fracture; J45.909 Unspecified asthma, uncomplicated; Z87.891 Personal history of nicotine dependence; Z79.84 Long term (current) use of oral hypoglycemic drugs; Z88.5 Allergy status to narcotic agent; Z88.8 Allergy status to other drugs, medicaments and biological substances; Z91.048 Other nonmedicinal substance allergy status ==

== ENCOUNTER 2022-06-26 21:22 | Emergency (ER) | payer OTHER ==
[~2022-06-26] VITALS: Ht 160 cm; Wt 85.4 kg
[~2022-06-26 21:22] MED LIST changes: -ACET-683 PO; -AMLO1TAB25 PO; -DICL3GEL2 TOP; -METH-1165 PO; -RANO500T7 PO
[2022-06-26 21:23] VITALS: BP 131/71
[2022-06-26] MEDS ORDERED: ONDA4TAB6 PO (21:34)
[2022-06-26] MEDS ORDERED: AMLO1TAB25 PO (21:34)
[2022-06-26] MEDS ORDERED: RANO500T7 PO (21:34)
[2022-06-26] MEDS ORDERED: METH-1165 PO (21:34)
[2022-06-26] MEDS ORDERED: ATOR40TA75 PO (21:34)
[2022-06-26] MEDS ORDERED: DICL3GEL2 TOP (21:35)
[2022-06-26] MEDS ORDERED: ACET-683 PO (21:35)
== END 2022-06-27 01:23 | disposition left against medical advice (07) ==
LOC: M ED 21:22
DX: Z53.21 Procedure and treatment not carried out due to patient leaving prior to being seen by health care provider (principal)

== ENCOUNTER → 2022-08-03 | Outpatient (CLI) | payer OTHER ==
[~2022-08-03] MED LIST changes: +ACET-683 PO; +AMLO1TAB25 PO; +DICL3GEL2 TOP; +METH-1165 PO; +RANO500T7 PO
== END ==
LOC: M RAD 08:48
PROVIDERS: ATTEND Physician Assistant Medical
DX: R11.2 Nausea with vomiting, unspecified (principal); R10.9 Unspecified abdominal pain

== ENCOUNTER → 2022-08-06 | Outpatient (CLI) | payer OTHER ==
[2022-08-06 15:47] LABS: HEMATOCRIT 35.9 % (36.0-47.0); MEAN CORPUSCULAR HEMOGLOBIN 34.6 pg (27.0-33.0); MEAN CORPUSCULAR HGB CONC 33.4 g/dl (32.0-36.5); MEAN CORPUSCULAR VOLUME 103.5 fl (80.0-96.0); PLATELET COUNT, AUTOMATED 276 10^3/uL (150-450); RED BLOOD COUNT 3.47 10^6/uL (4.00-5.40); WHITE BLOOD COUNT 11.3 10^3/uL (4.0-10.0)
[2022-08-06 15:54] LABS: URIC ACID 3.1 MG/DL (3.1-7.8)
[2022-08-06 15:56] LABS: CREATININE,RANDOM URINE 19.9 MG/DL
[2022-08-06 15:57] LABS: ALT/SGPT 47 U/L (7.0-40); AST/SGOT 17 U/L (<34); BILIRUBIN,TOTAL 0.3 MG/DL (0.3-1.2); CREATININE FOR GFR 0.44 MG/DL (0.55-1.30); GLOMERULAR FILTRATION RATE > 60.0 (>60); LDH LACTATE DEHYDROGENASE 156 U/L (120-246); TOTAL PROTEIN,RANDOM URINE < 6.0 MG/DL (0.0-14.0)
[2022-08-06 16:13] LABS: HEMOGLOBIN A1c 5.3 % (4.0-6.0)
[2022-08-06 16:24] LABS: HIV 1&2 SCREEN CENTAUR NEGATIVE (NEGATIVE)
[2022-08-06 16:47] LABS: GC DNA AMPLIFICATION NEGATIVE (NEGATIVE)
== END ==
LOC: M PLALAB 13:41
PROVIDERS: ATTEND Advanced Practice Midwife
DX: O10.011 Pre-existing essential hypertension complicating pregnancy, first trimester (principal)

== ENCOUNTER → 2022-09-09 | Outpatient (REF) | payer OTHER ==
[~2022-09-09] MED LIST changes: -VITA500064 PO; +VITA500065 PO
[2022-09-09 17:40] LABS: ALBUMIN 3.5 G/DL (3.2-5.2); ALKALINE PHOSPHATASE 41 U/L (46-116); ALT/SGPT 36 U/L (7.0-40); AST/SGOT 18 U/L (<34); BILIRUBIN,DIRECT < 0.1 MG/DL (<0.4); BILIRUBIN,TOTAL 0.2 MG/DL (0.3-1.2); TOTAL PROTEIN 6.7 G/DL (5.7-8.2)
== END ==
LOC: M LAB REF 16:18
PROVIDERS: ATTEND Nurse Practitioner Family
DX: M54.50 Low back pain, unspecified (principal)

== ENCOUNTER → 2022-09-23 | Outpatient (CLI) | payer OTHER | LOC: M PLALAB 11:47 | PROVIDERS: ATTEND Advanced Practice Midwife | DX: O10.012 Pre-existing essential hypertension complicating pregnancy, second trimester (principal) ==

== ENCOUNTER → 2022-10-26 | Outpatient (CLI) | payer OTHER ==
[~2022-10-26] MED LIST changes: -K-TA10TA2 PO; +POTA-165 PO; -POTA10CA33 PO; +POTA10CA60 PO
[2022-10-26 15:58] LABS: HEMATOCRIT 33.1 % (36.0-47.0); HEMOGLOBIN 11.3 g/dl (12.0-15.5); MEAN CORPUSCULAR HEMOGLOBIN 34.6 pg (27.0-33.0); MEAN CORPUSCULAR HGB CONC 34.1 g/dl (32.0-36.5); MEAN CORPUSCULAR VOLUME 101.2 fl (80.0-96.0); PLATELET COUNT, AUTOMATED 278 10^3/uL (150-450); RED BLOOD COUNT 3.27 10^6/uL (4.00-5.40); WHITE BLOOD COUNT 13.5 10^3/uL (4.0-10.0)
[2022-10-26 16:11] LABS: LDH LACTATE DEHYDROGENASE 143 U/L (120-246)
[2022-10-26 16:12] LABS: ALT/SGPT 15 U/L (7.0-40); AST/SGOT < 8 U/L (<34); BILIRUBIN,TOTAL 0.3 MG/DL (0.3-1.2); CREATININE FOR GFR 0.44 MG/DL (0.55-1.30); GLOMERULAR FILTRATION RATE > 60.0 (>60)
[2022-10-26 17:52] LABS: HEMOGLOBIN A1c 5.3 % (4.0-6.0)
[2022-10-26 20:15] LABS: GC DNA AMPLIFICATION NEGATIVE (NEGATIVE)
== END ==
LOC: M PLALAB 14:37
PROVIDERS: ATTEND Advanced Practice Midwife
DX: Z36.89 Encounter for other specified antenatal screening (principal); Z3A.22 22 weeks gestation of pregnancy

== ENCOUNTER → 2022-12-03 | Outpatient (CLI) | payer OTHER | LOC: M WHC 14:43 | PROVIDERS: ATTEND Advanced Practice Midwife | DX: O24.912 Unspecified diabetes mellitus in pregnancy, second trimester (principal) ==

== ENCOUNTER 2023-01-09 18:55 | Outpatient (CLI) | payer OTHER ==
[~2023-01-09] VITALS: Ht 160 cm; Wt 107.1 kg
[2023-01-09 19:16] VITALS: BP 170/79
[2023-01-09] MEDS ORDERED: LABE200T5 PO (19:21)
[2023-01-09] MEDS ORDERED: LYRI150C PO (19:21)
[2023-01-09] MEDS ORDERED: MELO10CA2 PO (19:21)
[2023-01-09] MEDS ORDERED: OMEP10CASR PO (19:21)
[2023-01-09] MEDS ORDERED: HOME MED LIST COMPLETE! XX SCH (19:25)
[2023-01-09] MEDS ORDERED: LABETALOL 200 MG TAB PO ONE (19:30)
[2023-01-09 19:37] VITALS: BP 164/69
[2023-01-09 19:50] VITALS: BP 134/81
[2023-01-09 20:19] LABS: HEMATOCRIT 31.8 % (36.0-47.0); HEMOGLOBIN 10.9 g/dl (12.0-15.5); MEAN CORPUSCULAR HEMOGLOBIN 32.6 pg (27.0-33.0); MEAN CORPUSCULAR HGB CONC 34.3 g/dl (32.0-36.5); MEAN CORPUSCULAR VOLUME 95.2 fl (80.0-96.0); PLATELET COUNT, AUTOMATED 346 10^3/uL (150-450); RED BLOOD COUNT 3.34 10^6/uL (4.00-5.40)
[2023-01-09 20:25] VITALS: BP 132/77
[2023-01-09 20:25] LABS: APPEARANCE, URINE HAZY (CLEAR); BACTERIA, URINE AUTO NEGATIVE (NEGATIVE); BILIRUBIN, URINE AUTO NEGATIVE (NEGATIVE); BLOOD, URINE BLOOD NEGATIVE (NEGATIVE); COLOR, URINE YELLOW (YELLOW); GLUCOSE, URINE (UA) AUTO 1+ mg/dL (NEGATIVE); KETONE, URINE AUTO TRACE mg/dL (NEGATIVE); LEUKOCYTE ESTERASE, URINE AUTO NEGATIVE (NEGATIVE); MUCUS, URINE SMALL (NEGATIVE); NITRITE, URINE AUTO POSITIVE (NEGATIVE); PROTEIN, URINE AUTO 1+ mg/dL (NEGATIVE); RBC, URINE AUTO 4 /HPF (0-3); SPECIFIC GRAVITY URINE AUTO 1.014 (1.002-1.035); SQUAMOUS EPITHELIAL CELL UR AU 9 /HPF (0-6); TRANSITIONAL EPITHELIAL AUTO <1 /HPF; UROBILINOGEN, URINE AUTO 0.2 mg/dL (0.0-2.0); WBC, URINE AUTO 2 /HPF (0-3)
[2023-01-09 20:38] LABS: ALBUMIN 2.5 G/DL (3.2-5.2); ALKALINE PHOSPHATASE 87 U/L (46-116); ALT/SGPT 21 U/L (7.0-40); AST/SGOT 26 U/L (<34); BILIRUBIN,TOTAL 0.2 MG/DL (0.3-1.2); BLOOD UREA NITROGEN 5 MG/DL (9-23); CARBON DIOXIDE LEVEL 23 MMOL/L (20-31); CHLORIDE LEVEL 108 MMOL/L (98-107); CREATININE FOR GFR 0.46 MG/DL (0.55-1.30); GLOMERULAR FILTRATION RATE > 60.0 (>60); GLUCOSE, FASTING 150 MG/DL (60-100); POTASSIUM SERUM 3.9 MMOL/L (3.5-5.1); SODIUM LEVEL 140 MMOL/L (136-145); TOTAL PROTEIN 5.3 G/DL (5.7-8.2)
[2023-01-09 20:55] VITALS: BP 133/59
== END 2023-01-09 21:31 | disposition home or self-care (01) ==
LOC: M LDO 18:55
PROVIDERS: ATTEND Obstetrics & Gynecology
DX: O36.8130 Decreased fetal movements, third trimester, not applicable or unspecified (principal); O26.893 Other specified pregnancy related conditions, third trimester; R10.2 Pelvic and perineal pain; O24.313 Unspecified pre-existing diabetes mellitus in pregnancy, third trimester; O10.013 Pre-existing essential hypertension complicating pregnancy, third trimester; O34.218 Maternal care for other type scar from previous cesarean delivery; O99.343 Other mental disorders complicating pregnancy, third trimester; F41.8 Other specified anxiety disorders; Z91.148 Patient's other noncompliance with medication regimen for other reason; Z3A.33 33 weeks gestation of pregnancy
CPT/HCPCS: 36415; 59025; 80053; 81001; 85027; G0463

== ENCOUNTER 2023-01-16 17:29 | Inpatient (IN) | payer OTHER ==
[2023-01-16] VITALS (10 sets, daily range): BP systolic 118–149; BP diastolic 60–88
[~2023-01-16] VITALS: Ht 160 cm; Wt 102.3 kg
[~2023-01-16 17:29] MED LIST changes: +LABE200T5 PO; +MELO10CA2 PO; +OMEP10CASR PO
[2023-01-16] MEDS ORDERED: PROM1SUP2 PR (17:48)
[2023-01-16] MEDS ORDERED: POTA-164 PO (17:49)
[2023-01-16] MEDS ORDERED: B-12100010 PO (17:49)
[2023-01-16] MEDS ORDERED: CYMB60CA4 PO (17:50)
[2023-01-16] MEDS ORDERED: LR 1,000 ML IV ONE (18:00)
[2023-01-16] MEDS ORDERED: LACTATED RINGER'S 1000 ML IV STA (20:04)
[2023-01-16] MEDS ORDERED: PENICILLIN G POTASSIUM 5 MU IV 5 MU in D5W MINI-BAG PLUS 100 ML IV STA (20:04)
[2023-01-16] MEDS ORDERED: TRANEXAMIC ACID INJection 1,000 MG in NS 100 ML IV PRN (20:05)
[2023-01-16] MEDS ORDERED: CARBOPROST TROMETHAMINE 250 MCG/ML AMP IM PRN (20:05)
[2023-01-16] MEDS ORDERED: OXYTOCIN DRIP 30 UNITS in IV 1 EA IV PRN (20:05)
[2023-01-16] MEDS ORDERED: LIDOCAINE 1% MDV 20ML VIAL INFIL PRN (20:05)
[2023-01-16] MEDS: BETAMETHASONE SOLUSPAN 6MG/ML 5ML VIAL IM SCH (20:28)
[2023-01-16 20:54] LABS: HEMATOCRIT 35.4 % (36.0-47.0); MEAN CORPUSCULAR HEMOGLOBIN 32.2 pg (27.0-33.0); MEAN CORPUSCULAR HGB CONC 33.9 g/dl (32.0-36.5); MEAN CORPUSCULAR VOLUME 94.9 fl (80.0-96.0); PLATELET COUNT, AUTOMATED 304 10^3/uL (150-450); RED BLOOD COUNT 3.73 10^6/uL (4.00-5.40); WHITE BLOOD COUNT 16.2 10^3/uL (4.0-10.0)
[2023-01-16 21:00] LABS: LDH LACTATE DEHYDROGENASE 214 U/L (120-246)
[2023-01-16 21:01] LABS: ALT/SGPT 20 U/L (7.0-40); AST/SGOT 32 U/L (<34); BILIRUBIN,TOTAL 0.3 MG/DL (0.3-1.2); CREATININE FOR GFR 0.43 MG/DL (0.55-1.30); GLOMERULAR FILTRATION RATE > 60.0 (>60)
[2023-01-16 21:42] LABS: AMPHETAMINES URINE REFLEX NEGATIVE (NEGATIVE); BARBITURATES URINE REFLEX NEGATIVE (NEGATIVE); BENZODIAZEPINES URINE REFLEX NEGATIVE (NEGATIVE); COCAINE METABOLITE URINE REFLE NEGATIVE (NEGATIVE); METHADONE URINE REFLEX NEGATIVE (NEGATIVE); OPIATES URINE REFLEX NEGATIVE (NEGATIVE); PHENCYCLIDINE URINE REFLEX NEGATIVE (NEGATIVE)
[2023-01-16 21:42] LABS: URIC ACID 4.3 MG/DL (3.1-7.8)
[2023-01-16 21:44] LABS: CANNABINOIDS URINE REFLEX PENDING CONFIRMATION (NEGATIVE)
[2023-01-16 21:45] LABS: CREATININE,RANDOM URINE 23.4 MG/DL
[2023-01-16 21:48] LABS: TOTAL PROTEIN,RANDOM URINE < 6.0 MG/DL (0.0-14.0)
[2023-01-16] MEDS ORDERED: MORPHINE 10 MG/ML 1ML VIAL IV ONE (22:00)
[2023-01-16] MEDS ORDERED: PROMETHAZINE 25MG/ML 1ML VIAL IV ONE (22:00)
[2023-01-16] MEDS ORDERED: diphenhydrAMINE 50MG/ML VIAL IV PRN (23:10)
[2023-01-16] MEDS ORDERED: NALOXONE INJ 0.4MG/1ML VIAL IV PRN (23:10)
[2023-01-16] MEDS ORDERED: LR 500 ML IV PRN (23:10)
[2023-01-16] MEDS ORDERED: ONDANSETRON 4MG 2ML VIAL IV PRN (23:10)
[2023-01-16] MEDS ORDERED: ePHEDrine SULFATE 25 MG/5 ML(5MG/ML) SYRINGE IVP PRN (23:10)
[2023-01-16] MEDS ORDERED: EPIDURAL/PCA KEYS XX PRN (23:10)
[2023-01-16] MEDS ORDERED: LR 1,000 ML IV SCH (23:15)
[2023-01-16] MEDS: FENTANYL/ROPIVACAINE/NACL BAG 100 ML EPIDURAL SCH (23:32)
[2023-01-17] VITALS (46 sets, daily range): BP systolic 95–143; BP diastolic 50–84; TEMP 98.3; O2SAT 97–98
[2023-01-17] MEDS: PEN G POT 3,000,000 UNIT/50 ML 3,000,000 UNIT in IV 1 EA IV SCH ×5 (00:47→16:01)
[2023-01-17] MEDS ORDERED: INSULIN IV RATE CHANGE DOCUMENTATION ML/HR XX SCH (02:30)
[2023-01-17] MEDS: NS 1,000 ML IV SCH ×3 (02:50→18:58)
[2023-01-17] MEDS: INSULIN REGULAR IN 0.9 % NACL 100 UNIT in IV 1 EA IV SCH ×12 (02:52→16:59)
[2023-01-17] MEDS: ACETAMINOPHEN 500 MG TAB PO PRN ×2 (06:23→12:06)
[2023-01-17] MEDS: FENTANYL/ROPIVACAINE/NACL BAG 100 ML EPIDURAL SCH ×2 (08:15→17:21)
[2023-01-17] MEDS: LABETALOL 200 MG TAB PO SCH ×2 (09:49→22:45)
[2023-01-17] MEDS: BETAMETHASONE SOLUSPAN 6MG/ML 5ML VIAL IM SCH (10:54)
[2023-01-17] MEDS ORDERED: LACTATED RINGER'S 1000 ML IV STA (12:42)
[2023-01-17] MEDS ORDERED: BICITRA 30ML SOLN UDC PO ONE (12:45)
[2023-01-17] MEDS ORDERED: ceFAZolin SOD 2 GM in IV 1 EA IV ONE (12:45)
[2023-01-17] MEDS ORDERED: AZITHROMYCIN INJ 500 MG, VIAL MATE ADAPTER 1 EACH in NS 250 ML IV ONE (12:45)
[2023-01-17] MEDS ORDERED: LR 1,000 ML IV SCH (12:45)
[2023-01-17] MEDS ORDERED: SODIUM CHLORIDE 0.9% 1000ML IV ONE (13:00)
[2023-01-17 14:27] LABS: HEMATOCRIT 30.2 % (36.0-47.0); HEMOGLOBIN 10.3 g/dl (12.0-15.5); MEAN CORPUSCULAR HEMOGLOBIN 32.4 pg (27.0-33.0); MEAN CORPUSCULAR HGB CONC 34.1 g/dl (32.0-36.5); PLATELET COUNT, AUTOMATED 253 10^3/uL (150-450); RED BLOOD COUNT 3.18 10^6/uL (4.00-5.40); WHITE BLOOD COUNT 17.6 10^3/uL (4.0-10.0)
[2023-01-17] MEDS ORDERED: LIDOCAINE 2% W/EPINEPHRINE 20ML VIAL **PRES FREE As Ordered ONE (19:40)
[2023-01-17] MEDS ORDERED: SIMETHICONE 80MG CHEW TAB PO PRN (19:50)
[2023-01-17] MEDS: LR 1,000 ML IV SCH (19:50)
[2023-01-17] MEDS ORDERED: OXYTOCIN DRIP 30 UNITS in IV 1 EA IV SCH (19:50)
[2023-01-17] MEDS ORDERED: ONDANSETRON 4MG 2ML VIAL IV PRN ×2 (19:50→20:45)
[2023-01-17] MEDS ORDERED: RHOGAM 300MCG (1500IU) INJ IM SCH (19:50)
[2023-01-17] MEDS ORDERED: MOM 30ML SUSPENSION UDC PO PRN (19:50)
[2023-01-17] MEDS ORDERED: KETOROLAC 30 MG/ML 1ML VIAL IV SCH (20:00)
[2023-01-17] MEDS ORDERED: MORPHINE PRES-FREE INJ 10 MG/10 ML VIAL As Ordered ONE (20:07)
[2023-01-17] MEDS ORDERED: OXYTOCIN 30UNITS IN 0.9% NaCl 500ML IV BAG As Ordered ONE ×2 (20:11→21:04)
[2023-01-17] MEDS ORDERED: ACETAMINOPHEN 1000MG 100ML IV BAG As Ordered ONE (20:11)
[2023-01-17] MEDS ORDERED: ONDANSETRON 4MG 2ML VIAL As Ordered ONE (20:14)
[2023-01-17] MEDS ORDERED: KETOROLAC 60MG 2ML VIAL As Ordered ONE (20:14)
[2023-01-17] MEDS ORDERED: MEPERIDINE 50 MG/ML 1ML VIAL As Ordered ONE (20:19)
[2023-01-17] MEDS ORDERED: MEPERIDINE 25 MG/ML 1ML VIAL IV PRN (20:45)
[2023-01-17] MEDS ORDERED: HYDROMORPHONE HCL 0.5 MG/ 0.5 ML SYRINGE IV PRN (20:45)
[2023-01-17] MEDS ORDERED: fentaNYL 100 MCG/2 ML INJECTION IV PRN (20:45)
[2023-01-17] MEDS ORDERED: oxyCODONE 5MG TAB PO PRN (20:45)
[2023-01-17] MEDS: DOCUSATE SODIUM 100MG CAPSULE PO SCH (22:44)
[2023-01-18] VITALS (8 sets, daily range): BP systolic 114–154; BP diastolic 56–81; O2SAT 95–98
[2023-01-18] MEDS: KETOROLAC 30 MG/ML 1ML VIAL IV SCH ×3 (01:39→13:49)
[2023-01-18] MEDS: LR 1,000 ML IV SCH (03:57)
[2023-01-18] MEDS: oxyCODONE 5MG TAB PO PRN ×4 (04:14→22:56)
[2023-01-18 07:17] LABS: MEAN CORPUSCULAR HGB CONC 34.5 g/dl (32.0-36.5); MEAN CORPUSCULAR VOLUME 95.7 fl (80.0-96.0); PLATELET COUNT, AUTOMATED 262 10^3/uL (150-450); RED BLOOD COUNT 3.03 10^6/uL (4.00-5.40)
[2023-01-18] MEDS: metFORMIN (GLUCOPHAGE) 1000MG TABLET PO SCH ×2 (08:14→17:50)
[2023-01-18] MEDS: PRENATAL VITAMINS CHEWABLE TABLET PO SCH (08:14)
[2023-01-18] MEDS: FERROUS SULFATE 325MG TAB PO SCH (08:14)
[2023-01-18] MEDS: LABETALOL 200 MG TAB PO SCH ×2 (08:14→21:03)
[2023-01-18] MEDS: PREGABALIN 75 MG CAP(LYRICA) PO SCH ×2 (08:14→21:02)
[2023-01-18] MEDS: DULoxetine 30MG CAPSULE (CYMBALTA) PO SCH ×2 (08:14→21:02)
[2023-01-18] MEDS: DOCUSATE SODIUM 100MG CAPSULE PO SCH ×2 (08:15→21:00)
[2023-01-18] MEDS: IBUPROFEN 800 MG TAB PO SCH (21:04)
[2023-01-19 02:00] VITALS: BP 116/62; O2SAT 97
[2023-01-19 06:00] VITALS: BP 131/61; O2SAT 96
[2023-01-19] MEDS: IBUPROFEN 800 MG TAB PO SCH ×2 (06:23→13:57)
[2023-01-19] MEDS ORDERED: OXYC-517 PO (07:38)
[2023-01-19] MEDS ORDERED: IBUP80TA PO (07:38)
[2023-01-19] MEDS ORDERED: COLA100C5 PO (07:38)
[2023-01-19] MEDS: PREGABALIN 75 MG CAP(LYRICA) PO SCH (08:29)
[2023-01-19] MEDS: FERROUS SULFATE 325MG TAB PO SCH (08:29)
[2023-01-19] MEDS: DULoxetine 30MG CAPSULE (CYMBALTA) PO SCH (08:29)
[2023-01-19] MEDS: metFORMIN (GLUCOPHAGE) 1000MG TABLET PO SCH (08:29)
[2023-01-19] MEDS: PRENATAL VITAMINS CHEWABLE TABLET PO SCH (08:29)
[2023-01-19 08:30] VITALS: BP 131/61
[2023-01-19] MEDS: oxyCODONE 5MG TAB PO PRN (08:30)
[2023-01-19] MEDS: LABETALOL 200 MG TAB PO SCH (08:30)
[2023-01-19] MEDS: DOCUSATE SODIUM 100MG CAPSULE PO SCH (08:31)
[2023-01-19] MEDS ORDERED: MEASLES,MUMPS,RUBELLA VACCINE INJ (MMR-II) SC.IMMUN ONE (09:00)
[2023-01-19 10:00] VITALS: BP 128/73; O2SAT 98
[2023-01-20 12:08] LABS: Cannabinoid Positive (.); Carboxy THC Conf, MS, UR 42 ng/mL (Cutoff=10)
== END 2023-01-19 13:30 | disposition home or self-care (01) | DRG 540 ==
LOC: M LDO 17:29 → M LDI 23:00 → M OBS 01-17 22:30
PROVIDERS: ADMIT Obstetrics & Gynecology; ATTEND Obstetrics & Gynecology
PROC: 10D00Z1 Extraction of Products of Conception, Low, Open Approach (ICD-10-PCS; principal; 2023-01-17 19:00)
DX: O60.14X0 Preterm labor third trimester with preterm delivery third trimester, not applicable or unspecified (principal); O24.12 Pre-existing type 2 diabetes mellitus, in childbirth; O10.02 Pre-existing essential hypertension complicating childbirth; O99.324 Drug use complicating childbirth; O99.344 Other mental disorders complicating childbirth; O34.211 Maternal care for low transverse scar from previous cesarean delivery; Z79.84 Long term (current) use of oral hypoglycemic drugs; O99.52 Diseases of the respiratory system complicating childbirth; J45.909 Unspecified asthma, uncomplicated; F41.9 Anxiety disorder, unspecified; F32.A Depression, unspecified; O99.824 Streptococcus B carrier state complicating childbirth; O99.334 Smoking (tobacco) complicating childbirth; F17.210 Nicotine dependence, cigarettes, uncomplicated; F12.90 Cannabis use, unspecified, uncomplicated; Z79.899 Other long term (current) drug therapy; Z88.5 Allergy status to narcotic agent; Z88.8 Allergy status to other drugs, medicaments and biological substances; Z91.018 Allergy to other foods; O45.93 Premature separation of placenta, unspecified, third trimester; Z3A.34 34 weeks gestation of pregnancy; Z37.0 Single live birth; M96.1 Postlaminectomy syndrome, not elsewhere classified; O26.893 Other specified pregnancy related conditions, third trimester; G89.29 Other chronic pain; O99.354 Diseases of the nervous system complicating childbirth

== ENCOUNTER 2023-10-11 00:13 | Inpatient (IN) | payer MEDICAID, OTHER, SELFPAY ==
[~2023-10-11] VITALS: Ht 160 cm; Wt 112.0 kg
[~2023-10-11 00:13] MED LIST changes: +B-12100010 PO; +BUPR-597 PO; -BUPR300T92 PO; +CEFD1CAP9; -CEFD300C41; +COLA100C5 PO; +ONDA-282 PO; -ONDA4TAB6 PO; +OXYC-517 PO; +POTA-164 PO; -POTA10CA60 PO; +POTA10CA70 PO; +PROM1SUP2 PR
[2023-10-11 01:13] LABS: HEMATOCRIT 41.2 % (36.0-47.0); HEMOGLOBIN 14.6 g/dl (12.0-15.5); MEAN CORPUSCULAR HEMOGLOBIN 33.3 pg (27.0-33.0); MEAN CORPUSCULAR HGB CONC 35.4 g/dl (32.0-36.5); MEAN CORPUSCULAR VOLUME 94.1 fl (80.0-96.0); PLATELET COUNT, AUTOMATED 357 10^3/uL (150-450); RED BLOOD COUNT 4.38 10^6/uL (4.00-5.40); WHITE BLOOD COUNT 11.8 10^3/uL (4.0-10.0)
[2023-10-11 01:37] LABS: ETHYL ALCOHOL (ETHANOL) 0.005 % (0.000-0.010)
[2023-10-11 01:38] LABS: SALICYLATE LEVEL < 3.0 MG/DL (<30)
[2023-10-11 01:39] LABS: ALBUMIN 4.1 G/DL (3.2-5.2); ALKALINE PHOSPHATASE 82 U/L (46-116); ALT/SGPT 33 U/L (7.0-40); AST/SGOT 20 U/L (<34); BILIRUBIN,DIRECT < 0.1 MG/DL (<0.4); BILIRUBIN,TOTAL 0.3 MG/DL (0.3-1.2); BLOOD UREA NITROGEN 8 MG/DL (9-23); CALCIUM LEVEL 9.1 MG/DL (8.5-10.1); CARBON DIOXIDE LEVEL 26 MMOL/L (20-31); CHLORIDE LEVEL 103 MMOL/L (98-107); CREATININE FOR GFR 0.69 MG/DL (0.55-1.30); GLOMERULAR FILTRATION RATE > 60.0 (>60); GLUCOSE, FASTING 133 MG/DL (60-100); POTASSIUM SERUM 4.1 MMOL/L (3.5-5.1); SODIUM LEVEL 137 MMOL/L (136-145); TOTAL PROTEIN 7.2 G/DL (5.7-8.2)
[2023-10-11 01:41] LABS: THYROID STIMULATING HORMONE 2.168 uIU/ML (0.55-4.78)
[2023-10-11] MEDS ORDERED: HOME MED LIST COMPLETE! XX SCH (03:20)
[2023-10-11 03:21] LABS: AMPHETAMINES LEVEL URINE NEGATIVE (NEGATIVE); BARBITURATES URINE NEGATIVE (NEGATIVE); BENZODIAZEPINES URINE NEGATIVE (NEGATIVE); COCAINE METABOLITE URINE NEGATIVE (NEGATIVE); METHADONE URINE NEGATIVE (NEGATIVE); OPIATES URINE NEGATIVE (NEGATIVE); PHENCYCLIDINE URINE NEGATIVE (NEGATIVE)
[2023-10-11 03:22] LABS: CANNABINOIDS URINE POSITIVE (NEGATIVE)
[2023-10-11] MEDS ORDERED: MAALOX 30 ML SUSP *UDC PO PRN (04:25)
[2023-10-11] MEDS ORDERED: diphenhydrAMINE 25MG CAP PO PRN (04:25)
[2023-10-11] MEDS ORDERED: MOM 30ML SUSPENSION UDC PO PRN (04:25)
[2023-10-11] MEDS ORDERED: ACETAMINOPHEN 325 MG TAB As Ordered ONE (04:53)
[2023-10-11 08:40] VITALS: BP 161/91; TEMP 97.7; O2SAT 100
[2023-10-11] MEDS ORDERED: ALBUTEROL 90 MCG/ACT 8GM HFA INHALER INH PRN (10:10)
[2023-10-11] MEDS: GABAPENTIN 300 MG CAP PO SCH (10:20)
[2023-10-11] MEDS: DULoxetine 30MG CAPSULE (CYMBALTA) PO SCH (10:20)
[2023-10-11] MEDS: NICOTINE POLACRILEX 2 MG GUM PO PRN (10:20)
[2023-10-11] MEDS: BACITRACIN OINTMENT 30GM TUBE TOP SCH (10:20)
[2023-10-11] MEDS: IBUPROFEN 400MG TAB PO PRN (10:21)
[2023-10-11] MEDS: ACETAMINOPHEN TAB 650MG DOSE (2X325MG) PO PRN (15:57)
[2023-10-11 17:01] VITALS: BP 144/80; TEMP 96.4; O2SAT 98
[2023-10-11 20:13] LABS: HEMOGLOBIN A1c 6.2 % (4.0-6.0)
[2023-10-11] MEDS: LABETALOL 200 MG TAB PO SCH (21:06)
[2023-10-11] MEDS: ATORVASTATIN 20 MG TAB PO SCH (21:07)
[2023-10-11] MEDS: RAMELTEON 8 MG TAB (ROZEREM) PO SCH (21:07)
[2023-10-12 06:29] VITALS: BP 134/62; TEMP 97.7; O2SAT 97
[2023-10-12 07:55] LABS: CHOLESTEROL LEVEL 184 MG/DL (<200); CHOLESTEROL RISK RATIO 6.03 (<5); HDL CHOLESTEROL 30.5 MG/DL (>40); NON-HDL-C 153.5 MG/DL; TRIGLYCERIDES LEVEL 549 MG/DL (<150)
[2023-10-12 08:13] LABS: HEMOGLOBIN A1c 6.3 % (4.0-6.0)
[2023-10-12 08:24] VITALS: BP 128/78
[2023-10-12] MEDS: ONDANSETRON 4MG ORAL DISINTEGRATING TAB PO PRN (10:51)
[2023-10-12 15:55] VITALS: BP 134/61; TEMP 97.1
[2023-10-12] MEDS ORDERED: metFORMIN (GLUCOPHAGE) 1000MG TABLET PO SCH (18:00)
[2023-10-12] MEDS: traZODone 50 MG TAB PO PRN (22:58)
[2023-10-13 06:08] VITALS: BP 118/54; TEMP 97.9; O2SAT 97
[2023-10-13 18:27] VITALS: BP 130/62; TEMP 97.5; O2SAT 97
[2023-10-13] MEDS: LIDOCAINE 4% CREAM 5GM (LMX4) TOP PRN (21:17)
[2023-10-13] MEDS: OLANZapine ORAL DISINTEGRATING TAB 5MG PO PRN (21:18)
[2023-10-14 06:00] VITALS: BP 124/60; TEMP 96.9; O2SAT 96
[2023-10-14 08:26] VITALS: BP 136/64
[2023-10-14] MEDS ORDERED: TRAZ-252 PO (10:41)
[2023-10-14] MEDS ORDERED: NICO2GUM PO (10:41)
[2023-10-14] MEDS ORDERED: ONDA-282 PO (10:41)
[2023-10-14] MEDS ORDERED: ATOR1TAB21 PO (10:41)
[2023-10-14] MEDS ORDERED: LABE20TAB PO (10:41)
[2023-10-14] MEDS ORDERED: OLAN5ZYD PO (10:41)
[2023-10-14] MEDS ORDERED: LIDO4CR TOP (10:41)
[2023-10-14] MEDS ORDERED: CYMB1CAP5 PO (10:41)
[2023-10-14] MEDS ORDERED: RAME8TAB2 PO (10:41)
[2023-10-14] MEDS ORDERED: BACI50OI TOP (10:41)
[2023-10-14] MEDS ORDERED: GABA-282 PO (10:41)
[2023-10-14] MEDS ORDERED: OLAN2.5T25 PO (15:24)
== END 2023-10-14 11:32 | disposition home or self-care (01) | DRG 753 ==
LOC: M ED 00:13 → M ED INP 04:23 → M PSY 08:39
PROVIDERS: ADMIT Student in an Organized Health Care Education/Training Program; ATTEND Student in an Organized Health Care Education/Training Program
DX: F31.9 Bipolar disorder, unspecified (principal); G89.29 Other chronic pain; F06.31 Mood disorder due to known physiological condition with depressive features; F60.89 Other specific personality disorders; F43.10 Post-traumatic stress disorder, unspecified; F17.200 Nicotine dependence, unspecified, uncomplicated; G47.00 Insomnia, unspecified; S61.512A Laceration without foreign body of left wrist, initial encounter; X78.9XXA Intentional self-harm by unspecified sharp object, initial encounter; Y92.9 Unspecified place or not applicable; Y93.9 Activity, unspecified; Z95.810 Presence of automatic (implantable) cardiac defibrillator; Z63.5 Disruption of family by separation and divorce; E11.43 Type 2 diabetes mellitus with diabetic autonomic (poly)neuropathy; Z91.048 Other nonmedicinal substance allergy status; Z88.8 Allergy status to other drugs, medicaments and biological substances; J45.909 Unspecified asthma, uncomplicated; I10 Essential (primary) hypertension; E78.5 Hyperlipidemia, unspecified; E66.01 Morbid (severe) obesity due to excess calories; K76.0 Fatty (change of) liver, not elsewhere classified; M19.90 Unspecified osteoarthritis, unspecified site; M54.50 Low back pain, unspecified; M54.2 Cervicalgia; K58.9 Irritable bowel syndrome, unspecified; K21.9 Gastro-esophageal reflux disease without esophagitis; R26.89 Other abnormalities of gait and mobility; Z90.49 Acquired absence of other specified parts of digestive tract

== ENCOUNTER → 2023-10-26 | Outpatient (REF) | payer OTHER, MEDICAID ==
[~2023-10-26] MED LIST changes: -ARIP1TAB43 PO; +ARIP20TA51 PO; +ATOR1TAB21 PO; +BACI50OI TOP; +CYMB1CAP5 PO; +LABE20TAB PO; +LIDO4CR TOP; +NICO2GUM PO; +OLAN2.5T25 PO; +OLAN5ZYD PO; +RAME8TAB2 PO; +TRAZ-252 PO
[2023-10-26 12:53] LABS: BASO # 0.1 10^3/uL (0.0-0.2); BASO % 0.6 % (0.0-1.0); EOS # 0.4 10^3/uL (0.0-0.5); EOS % 3.9 % (0.0-3.0); HEMATOCRIT 38.5 % (36.0-47.0); HEMOGLOBIN 13.3 g/dl (12.0-15.5); LYMPH # 2.8 10^3/uL (1.5-5.0); LYMPH % 27.7 % (24.0-44.0); MEAN CORPUSCULAR HEMOGLOBIN 33.3 pg (27.0-33.0); MEAN CORPUSCULAR HGB CONC 34.5 g/dl (32.0-36.5); MEAN CORPUSCULAR VOLUME 96.3 fl (80.0-96.0); MONO # 0.7 10^3/uL (0.0-0.8); MONO % 6.9 % (2.0-8.0); NEUTROPHILS # 6.1 10^3/uL (1.5-8.5); NEUTROPHILS % 59.9 % (36.0-66.0); PLATELET COUNT, AUTOMATED 227 10^3/uL (150-450); WHITE BLOOD COUNT 10.2 10^3/uL (4.0-10.0)
[2023-10-26 13:24] LABS: ALBUMIN 3.5 G/DL (3.2-5.2); ALKALINE PHOSPHATASE 64 U/L (46-116); ALT/SGPT 30 U/L (7.0-40); AST/SGOT 15 U/L (<34); BILIRUBIN,TOTAL 0.3 MG/DL (0.3-1.2); BLOOD UREA NITROGEN 8 MG/DL (9-23); CALCIUM LEVEL 9.2 MG/DL (8.5-10.1); CARBON DIOXIDE LEVEL 28 MMOL/L (20-31); CHLORIDE LEVEL 105 MMOL/L (98-107); CHOLESTEROL LEVEL 165 MG/DL (<200); CHOLESTEROL RISK RATIO 4.14 (<5); CREATININE FOR GFR 0.61 MG/DL (0.55-1.30); GLOMERULAR FILTRATION RATE > 60.0 (>60); GLUCOSE, FASTING 131 MG/DL (60-100); HDL CHOLESTEROL 39.8 MG/DL (>40); MAGNESIUM LEVEL 1.6 MG/DL (1.8-2.4); NON-HDL-C 125.2 MG/DL; SODIUM LEVEL 138 MMOL/L (136-145); TOTAL PROTEIN 6.4 G/DL (5.7-8.2); TRIGLYCERIDES LEVEL 588 MG/DL (<150)
[2023-10-26 13:25] LABS: THYROID STIMULATING HORMONE 1.744 uIU/ML (0.55-4.78)
[2023-10-26 13:27] LABS: HEMOGLOBIN A1c 5.9 % (4.0-6.0)
== END ==
LOC: M LAB REF 12:26
PROVIDERS: ATTEND Nurse Practitioner Family
DX: E66.01 Morbid (severe) obesity due to excess calories (principal); E55.9 Vitamin D deficiency, unspecified